=== PATIENT | male | born 1935 | race Caucasian/White ===

== ENCOUNTER 2017-10-19 02:05 | Observation (INO) | payer MEDICARE, BC, OTHER ==
[2017-10-19] MEDS ORDERED: Sodium Chloride 0.9% 1,000 ML IV ONE ×2 (02:11→05:01)
[2017-10-19] MEDS ORDERED: Sodium Chloride 0.9% 2.5 ML Syringe FLUSH PRN ×2 (02:11)
[2017-10-19] MEDS ORDERED: Sodium Chloride 0.9% 10 ML Syringe FLUSH PRN (02:11)
[2017-10-19] MEDS ORDERED: cefTRIAXone 1 GM in Premix Bag 1 BAG IV ONE (03:03)
[2017-10-19 03:06] LABS: CHLORIDE,CL 100 mmol/L (98-107); SODIUM,NA 136 mmol/L (136-148)
--- NOTE | 2017-10-19 05:35 | EDM.PDOC ---
ED HPI GENERAL MEDICAL PROBLEM - General Chief Complaint: Fever Stated Complaint: AMBULANCE Time Seen by Provider: 10/19/17 05:29 Source of Information: Reports: Patient, Family History Limitations: Reports: No Limitations - History of Present Illness INITIAL COMMENTS - FREE TEXT/NARRATIVE: HISTORY AND PHYSICAL: History of present illness: 81-year-old male presented to emergency department by EMS with chief complaint of generalized weak 1 day. Patient states that he was unable to get up and has been feeling generally weak 1 day. Denies any associated fever, nausea, vomiting, abdominal pain, leg pain , or dysuria. Senior Buyer states that she has noticed increased urinary frequency. Senior Buyer states that he was doing fine until this evening coming back from dinner he became extremely weak and tired and was unable to get up after sitting down and that is why she called EMS. He currently denies any chest pain, palpitations, shortness breath, syncopal episodes or focal neurologic deficits. Patient does have baseline mild confusion/dementia. Review of systems: As per history of present illness and below otherwise all systems reviewed and negative. Past medical history: As per history of present illness and as reviewed below otherwise noncontributory. Surgical history: As per history of present illness and as reviewed below otherwise noncontributory. Social history: No reported history of drug or alcohol abuse. Family history: As per history of present illness and as reviewed below otherwise noncontributory. Physical exam: HEENT: Atraumatic, normocephalic, pupils reactive, negative for conjunctival pallor or scleral icterus, mucous membranes moist, throat clear, neck supple, nontender, trachea midline. Lungs: Clear to auscultation, breath sounds equal bilaterally, chest nontender. Heart: S1S2, regular, negative for clicks, rubs, or JVD. Abdomen: Soft, nondistended, nontender. Negative for masses or hepatosplenomegaly. Negative for costovertebral tenderness. Pelvis: Stable nontender. Genitourinary: Deferred. Rectal: Deferred. Extremities: Atraumatic, negative for cords or calf pain. Neurovascular unremarkable. Neuro: Awake, alert, oriented. Cranial nerves II through XII unremarkable. Cerebellum unremarkable. Motor and sensory unremarkable throughout. Exam nonfocal. Diagnostics: CBC, CMP, troponin, d-dimer, INR, chest x-ray, EKG, UA/UC, blood cultures x 2 Therapeutics: 1 L normal saline 2, 1 g Rocephin Impression: Generalized weakness Leukocytosis Plan: CBC did show leukocytosis of 18,000, lactate was normal. I did give the patient 2 L normal saline and 1 g of Rocephin IV. CMP, troponin, d-dimer, INR, chest x- ray, EKG were all unremarkable. Secondary to patient's generalized weakness, age , as well as mental status I did call Dr. Ku, hospitalist, who accepted patient for admission observation acute cystitis. Definitive disposition and diagnosis as appropriate pending reevaluation and review of above. - Related Data Allergies Allergy/AdvReac Type Severity Reaction Status Date / Time No Known Allergies Allergy Verified 10/19/17 02:13 Home Meds: Home Meds Aspirin [Ecotrin] 325 mg PO DAILY 08/09/15 [History] Metoprolol Tartrate [Lopressor] 25 mg PO BID 08/09/15 [History] metFORMIN HCl [Glucophage] 1,000 mg PO BIDMEALS 01/18/16 [History] Insulin Glargine,Hum.Rec.Anlog [Lantus Solostar] 7 unit SQ BEDTIME #1 pen [Rx] Furosemide [Lasix] 40 mg PO BID 10/19/17 [History] Gabapentin [Neurontin] 100 mg PO ASDIRECTED 10/19/17 [History] Lisinopril [Prinivil] 20 mg PO QAM 10/19/17 [History] Past Medical History HEENT History: Reports: Hard of Hearing, Impaired Vision Cardiovascular History: Reports: Hypertension Respiratory History: Reports: SOB Genitourinary History: Reports: None Musculoskeletal History: Reports: Other (See Below) Other Musculoskeletal History: using cane to ambulate Psychiatric History: Reports: None Endocrine/Metabolic History: Reports: Diabetes, Type II Dermatologic History: Reports: None - Infectious Disease History Infectious Disease History: Reports: Chicken Pox, Influenza, Measles, Mumps - Past Surgical History HEENT Surgical History: Reports: None Cardiovascular Surgical History: Reports: Coronary Artery Stent Male Surgical History: Reports: Prostatectomy Endocrine Surgical History: Reports: None Musculoskeletal Surgical History: Reports: Hip Replacement Social & Family History - Family History Family Medical History: Noncontributory Oncologic: Reports: Other (See Below) Other Oncologic Family History: cancer (feminine) - Tobacco Use Smoking Status *Q: Former Smoker Used Tobacco, but Quit: Yes Month/Year Tobacco Last Used: "many years ago" Second Hand Smoke Exposure: No - Caffeine Use Caffeine Use: Reports: Coffee - Recreational Drug Use Recreational Drug Use: No ED ROS GENERAL - Review of Systems Review Of Systems: ROS reveals no pertinent complaints other than HPI. ED EXAM, GENERAL - Physical Exam Exam: See Below Course - Vital Signs Last Recorded V/S: Last Vital Signs Temp 98.5 F 10/19/17 04:40 Pulse 93 10/19/17 04:40 Resp 18 10/19/17 04:40 BP 114/50 L 10/19/17 05:00 Pulse Ox 93 L 10/19/17 04:40 - Orders/Labs/Meds Orders: Active Orders 24 hr Category Date Time Status Admission Status [Patient Status] [ADT] Stat ADT 10/19/17 06:29 Active Cardiac Monitoring [RC] . DIRECTED Care 10/19/17 02:11 Active EKG Documentation Completion [RC] STAT Care 10/19/17 02:11 Active Oxygen Therapy [RC] ASDIRECTED Care 10/19/17 02:11 Active Pulse Oximetry [RC] ASDIRECTED Care 10/19/17 02:11 Active Chest 1V Frontal [CR] Stat Exams 10/19/17 02:11 Taken CULTURE BLOOD [BC] Stat Lab 10/19/17 02:33 Results CULTURE BLOOD [BC] Stat Lab 10/19/17 03:03 Received CULTURE URINE [RM] Stat Lab 10/19/17 05:29 Ordered UA W/MICROSCOPIC [URIN] Stat Lab 10/19/17 05:29 Ordered Sodium Chloride 0.9% [Saline Flush] Med 10/19/17 02:11 Active 10 ml FLUSH ASDIRECTED PRN Sodium Chloride 0.9% [Saline Flush] Med 10/19/17 02:11 Active 2.5 ml FLUSH ASDIRECTED PRN Sodium Chloride 0.9% [Saline Flush] Med 10/19/17 02:11 Active 2.5 ml FLUSH ASDIRECTED PRN Blood Culture x2 Reflex Set [OM.PC] Stat Oth 10/19/17 03:03 Ordered Saline Lock Insert [OM.PC] Stat Oth 10/19/17 02:11 Ordered Medication Orders Sodium Chloride (Saline Flush) 2.5 ml FLUSH ASDIRECTED PRN PRN Reason: Keep Vein Open Sodium Chloride (Saline Flush) 10 ml FLUSH ASDIRECTED PRN PRN Reason: Keep Vein Open Sodium Chloride (Saline Flush) 2.5 ml FLUSH ASDIRECTED PRN PRN Reason: Keep Vein Open Labs: Laboratory Tests 10/19/17 10/19/17 10/19/17 Range/Units 02:33 02:33 02:33 WBC 18.55 H (4.0-11.0) K/uL RBC 5.02 (4.50-5.90) M/uL Hgb 15.0 (13.0-17.0) g/dL Hct 44.6 (38.0-50.0) % MCV 88.8 (80.0-98.0) fL MCH 29.9 (27.0-32.0) pg MCHC 33.6 (31.0-37.0) g/dL RDW Std Deviation 45.1 (28.0-62.0) fl RDW Coeff of Manisha 14 (11.0-15.0) % Plt Count 196 (150-400) K/uL MPV 10.40 (7.40-12.00) fL Neut % (Auto) 86.8 H (48.0-80.0) % Lymph % (Auto) 5.8 L (16.0-40.0) % [place] % (Auto) 7.0 (0.0-15.0) % Eos % (Auto) 0.3 (0.0-7.0) % Baso % (Auto) 0.1 (0.0-1.5) % Neut # (Auto) 16.1 H (1.4-5.7) K/uL Lymph # (Auto) 1.1 (0.6-2.4) K/uL [place] # (Auto) 1.3 H (0.0-0.8) K/uL Eos # (Auto) 0.1 (0.0-0.7) K/uL Baso # (Auto) 0.0 (0.0-0.1) K/uL INR 1.11 D-Dimer, Quantitative 0.40 (0.0-0.52) mg/LFEU Lactate (0.20-2.00) mmol/L Sodium 136 (136-148) mmol/L Potassium 3.7 (3.5-5.1) mmol/L Chloride 100 (98-107) mmol/L Carbon Dioxide 25.7 (21.0-32.0) mmol/L BUN 20 H (7.0-18.0) mg/dL Creatinine 1.1 (0.8-1.3) mg/dL Est Cr Clr Drug Dosing 59.16 mL/min Estimated GFR (MDRD) > 60.0 ml/min Glucose 172 H (74-106) mg/dL Calcium 8.9 (8.5-10.1) mg/dL Total Bilirubin 1.5 H (0.2-1.0) mg/dL AST 15 (15-37) IU/L ALT 18 (14-63) IU/L Alkaline Phosphatase 105 (46-116) U/L Troponin I < 0.050 (0.000-0.056) ng/mL Total Protein 7.1 (6.4-8.2) g/dL Albumin 3.6 (3.4-5.0) g/dL Globulin 3.5 (2.0-3.5) g/dL Albumin/Globulin Ratio 1.0 L (1.3-2.8) Lipase 162 (73-393) U/L Urine Color Urine Appearance Urine pH (5.0-8.0) Ur Specific [place] (1.001-1.035) Urine Protein (NEGATIVE) mg/dL Urine Glucose (UA) (NEGATIVE) mg/dL Urine Ketones (NEGATIVE) mg/dL Urine Occult Blood (NEGATIVE) Urine Nitrite (NEGATIVE) Urine Bilirubin (NEGATIVE) Urine Urobilinogen (<2.0) EU/dL Ur Leukocyte Esterase (NEGATIVE) Urine RBC (0-2/HPF) Urine WBC (0-5/HPF) Ur Epithelial Cells (NONE-FEW) Urine Bacteria (NEGATIVE) 10/19/17 10/19/17 Range/Units 02:33 05:29 WBC (4.0-11.0) K/uL RBC (4.50-5.90) M/uL Hgb (13.0-17.0) g/dL Hct (38.0-50.0) % MCV (80.0-98.0) fL MCH (27.0-32.0) pg MCHC (31.0-37.0) g/dL RDW Std Deviation (28.0-62.0) fl RDW Coeff of Manisha (11.0-15.0) % Plt Count (150-400) K/uL MPV (7.40-12.00) fL Neut % (Auto) (48.0-80.0) % Lymph % (Auto) (16.0-40.0) % [place] % (Auto) (0.0-15.0) % Eos % (Auto) (0.0-7.0) % Baso % (Auto) (0.0-1.5) % Neut # (Auto) (1.4-5.7) K/uL Lymph # (Auto) (0.6-2.4) K/uL [place] # (Auto) (0.0-0.8) K/uL Eos # (Auto) (0.0-0.7) K/uL Baso # (Auto) (0.0-0.1) K/uL INR D-Dimer, Quantitative (0.0-0.52) mg/LFEU Lactate 1.4 (0.20-2.00) mmol/L Sodium (136-148) mmol/L Potassium (3.5-5.1) mmol/L Chloride (98-107) mmol/L Carbon Dioxide (21.0-32.0) mmol/L BUN (7.0-18.0) mg/dL Creatinine (0.8-1.3) mg/dL Est Cr Clr Drug Dosing mL/min Estimated GFR (MDRD) ml/min Glucose (74-106) mg/dL Calcium (8.5-10.1) mg/dL Total Bilirubin (0.2-1.0) mg/dL AST (15-37) IU/L ALT (14-63) IU/L Alkaline Phosphatase (46-116) U/L Troponin I (0.000-0.056) ng/mL Total Protein (6.4-8.2) g/dL Albumin (3.4-5.0) g/dL Globulin (2.0-3.5) g/dL Albumin/Globulin Ratio (1.3-2.8) Lipase (73-393) U/L Urine Color YELLOW Urine Appearance HAZY Urine pH 5.5 (5.0-8.0) Ur Specific [place] 1.020 (1.001-1.035) Urine Protein NEGATIVE (NEGATIVE) mg/dL Urine Glucose (UA) NEGATIVE (NEGATIVE) mg/dL Urine Ketones NEGATIVE (NEGATIVE) mg/dL Urine Occult Blood LARGE H (NEGATIVE) Urine Nitrite NEGATIVE (NEGATIVE) Urine Bilirubin NEGATIVE (NEGATIVE) Urine Urobilinogen 1.0 (<2.0) EU/dL Ur Leukocyte Esterase TRACE (NEGATIVE) Urine RBC 10-15 (0-2/HPF) Urine WBC 1-3 (0-5/HPF) Ur Epithelial Cells RARE (NONE-FEW) Urine Bacteria FEW (NEGATIVE) Meds: Medications Generic Name Dose Route Start Last Admin Trade Name Freq PRN Reason Stop Dose Admin Sodium Chloride 2.5 ml 10/19/17 02:11 Saline Flush FLUSH ASDIRECTED PRN Keep Vein Open Sodium Chloride 10 ml 10/19/17 02:11 Saline Flush FLUSH ASDIRECTED PRN Keep Vein Open Sodium Chloride 2.5 ml 10/19/17 02:11 Saline Flush FLUSH ASDIRECTED PRN Keep Vein Open Discontinued Medications Generic Name Dose Route Start Last Admin Trade Name Freq PRN Reason Stop Dose Admin Sodium Chloride 1,000 mls @ 999 mls/hr 10/19/17 02:11 10/19/17 02:45 Normal Saline IV 10/19/17 03:11 999 mls/hr .Bolus ONE Administration Ceftriaxone Sodium/Dextrose 1 50 mls @ 100 mls/hr 10/19/17 03:03 10/19/17 03: 19 gm/ Premix IV 10/19/17 03:32 100 mls/hr ONETIME ONE Administration Sodium Chloride 1,000 mls @ 999 mls/hr 10/19/17 05:01 10/19/17 05:16 Normal Saline IV 10/19/17 06:01 999 mls/hr STAT ONE Administration Departure - Departure Time of Disposition: 06:32 Disposition: Home, Self-Care 01 Condition: Good Clinical Impression: Acute cystitis Qualifiers: Hematuria presence: without hematuria Qualified Code(s): N30.00 - Acute cystitis without hematuria - Discharge Information Referrals: PCP,None [Primary Care Provider] - Forms: ED Department Discharge - My Orders Last 24 Hours: My Active Orders 10/19/17 02:11 Cardiac Monitoring [RC] . DIRECTED EKG Documentation Completion [RC] STAT Oxygen Therapy [RC] ASDIRECTED Pulse Oximetry [RC] ASDIRECTED Chest 1V Frontal [CR] Stat Sodium Chloride 0.9% [Saline Flush] 10 ml FLUSH ASDIRECTED PRN Sodium Chloride 0.9% [Saline Flush] 2.5 ml FLUSH ASDIRECTED PRN Sodium Chloride 0.9% [Saline Flush] 2.5 ml FLUSH ASDIRECTED PRN Saline Lock Insert [OM.PC] Stat 10/19/17 02:33 CULTURE BLOOD [BC] Stat 10/19/17 03:03 CULTURE BLOOD [BC] Stat Blood Culture x2 Reflex Set [OM.PC] Stat 10/19/17 05:29 CULTURE URINE [RM] Stat UA W/MICROSCOPIC [URIN] Stat 10/19/17 06:29 Admission Status [Patient Status] [ADT] Stat - Assessment/Plan Last 24 Hours: My Active Orders 10/19/17 02:11 Cardiac Monitoring [RC] . DIRECTED EKG Documentation Completion [RC] STAT Oxygen Therapy [RC] ASDIRECTED Pulse Oximetry [RC] ASDIRECTED Chest 1V Frontal [CR] Stat Sodium Chloride 0.9% [Saline Flush] 10 ml FLUSH ASDIRECTED PRN Sodium Chloride 0.9% [Saline Flush] 2.5 ml FLUSH ASDIRECTED PRN Sodium Chloride 0.9% [Saline Flush] 2.5 ml FLUSH ASDIRECTED PRN Saline Lock Insert [OM.PC] Stat 10/19/17 02:33 CULTURE BLOOD [BC] Stat 10/19/17 03:03 CULTURE BLOOD [BC] Stat Blood Culture x2 Reflex Set [OM.PC] Stat 10/19/17 05:29 CULTURE URINE [RM] Stat UA W/MICROSCOPIC [URIN] Stat 10/19/17 06:29 Admission Status [Patient Status] [ADT] Stat
--- NOTE | 2017-10-19 17:00 | PCM.HP ---
H&P History of Present Illness - General Admit Problem/Dx: Admission Diagnosis/Problem Admission Diagnosis/Problem Acute cystitis denies pain Pain Score (Numeric/FACES): 0 - Related Data Allergies/Adverse Reactions: Allergies Allergy/AdvReac Type Severity Reaction Status Date / Time No Known Allergies Allergy Verified 10/19/17 02:13 Home Medications: Home Meds Aspirin [Ecotrin] 325 mg PO DAILY 08/09/15 [History] Metoprolol Tartrate [Lopressor] 25 mg PO BID 08/09/15 [History] metFORMIN HCl [Glucophage] 1,000 mg PO BIDMEALS 01/18/16 [History] Insulin Glargine,Hum.Rec.Anlog [Lantus Solostar] 7 unit SQ BEDTIME #1 pen [Rx] Furosemide [Lasix] 40 mg PO BID 10/19/17 [History] Gabapentin [Neurontin] 100 mg PO ASDIRECTED 10/19/17 [History] Lisinopril [Prinivil] 20 mg PO QAM 10/19/17 [History] Past Medical History HEENT History: Reports: Hard of Hearing, Impaired Vision Cardiovascular History: Reports: Hypertension Respiratory History: Reports: SOB Genitourinary History: Reports: None Musculoskeletal History: Reports: Other (See Below) Other Musculoskeletal History: using cane to ambulate Psychiatric History: Reports: None Endocrine/Metabolic History: Reports: Diabetes, Type II Dermatologic History: Reports: None - Infectious Disease History Infectious Disease History: Reports: Chicken Pox, Influenza, Measles, Mumps - Past Surgical History HEENT Surgical History: Reports: None Cardiovascular Surgical History: Reports: Coronary Artery Stent Male Surgical History: Reports: Prostatectomy Endocrine Surgical History: Reports: None Musculoskeletal Surgical History: Reports: Hip Replacement Social & Family History - Family History Family Medical History: Noncontributory Oncologic: Reports: Other (See Below) Other Oncologic Family History: cancer (feminine) - Tobacco Use Smoking Status *Q: Former Smoker Used Tobacco, but Quit: Yes Month/Year Tobacco Last Used: 1977 Second Hand Smoke Exposure: No - Caffeine Use Caffeine Use: Reports: Coffee - Recreational Drug Use Recreational Drug Use: No Exam - Vital Signs Vital Signs: Last Vital Signs Temp 98.3 F 10/19/17 15:56 Pulse 72 10/19/17 15:56 Resp 18 10/19/17 15:56 BP 113/62 07/21/18 15:56 Pulse Ox 97 10/19/17 15:56 Weight: 232 lb 8 oz - Patient Data Lab Results Last 24 hrs: Laboratory Results - last 24 hr 10/19/17 10/19/17 10/19/17 Range/Units 02:33 02:33 02:33 WBC 18.55 H (4.0-11.0) K/uL RBC 5.02 (4.50-5.90) M/uL Hgb 15.0 (13.0-17.0) g/dL Hct 44.6 (38.0-50.0) % MCV 88.8 (80.0-98.0) fL MCH 29.9 (27.0-32.0) pg MCHC 33.6 (31.0-37.0) g/dL RDW Std Deviation 45.1 (28.0-62.0) fl RDW Coeff of Manisha 14 (11.0-15.0) % Plt Count 196 (150-400) K/uL MPV 10.40 (7.40-12.00) fL Neut % (Auto) 86.8 H (48.0-80.0) % Lymph % (Auto) 5.8 L (16.0-40.0) % [place] % (Auto) 7.0 (0.0-15.0) % Eos % (Auto) 0.3 (0.0-7.0) % Baso % (Auto) 0.1 (0.0-1.5) % Neut # (Auto) 16.1 H (1.4-5.7) K/uL Lymph # (Auto) 1.1 (0.6-2.4) K/uL [place] # (Auto) 1.3 H (0.0-0.8) K/uL Eos # (Auto) 0.1 (0.0-0.7) K/uL Baso # (Auto) 0.0 (0.0-0.1) K/uL INR 1.11 D-Dimer, Quantitative 0.40 (0.0-0.52) mg/LFEU Lactate (0.20-2.00) mmol/L Sodium 136 (136-148) mmol/L Potassium 3.7 (3.5-5.1) mmol/L Chloride 100 (98-107) mmol/L Carbon Dioxide 25.7 (21.0-32.0) mmol/L BUN 20 H (7.0-18.0) mg/dL Creatinine 1.1 (0.8-1.3) mg/dL Est Cr Clr Drug Dosing 59.16 mL/min Estimated GFR (MDRD) > 60.0 ml/min Glucose 172 H (74-106) mg/dL POC Glucose (60-110) mg/dL Calcium 8.9 (8.5-10.1) mg/dL Total Bilirubin 1.5 H (0.2-1.0) mg/dL AST 15 (15-37) IU/L ALT 18 (14-63) IU/L Alkaline Phosphatase 105 (46-116) U/L Troponin I < 0.050 (0.000-0.056) ng/mL Total Protein 7.1 (6.4-8.2) g/dL Albumin 3.6 (3.4-5.0) g/dL Globulin 3.5 (2.0-3.5) g/dL Albumin/Globulin Ratio 1.0 L (1.3-2.8) Lipase 162 (73-393) U/L Urine Color Urine Appearance Urine pH (5.0-8.0) Ur Specific [place] (1.001-1.035) Urine Protein (NEGATIVE) mg/dL Urine Glucose (UA) (NEGATIVE) mg/dL Urine Ketones (NEGATIVE) mg/dL Urine Occult Blood (NEGATIVE) Urine Nitrite (NEGATIVE) Urine Bilirubin (NEGATIVE) Urine Urobilinogen (<2.0) EU/dL Ur Leukocyte Esterase (NEGATIVE) Urine RBC (0-2/HPF) Urine WBC (0-5/HPF) Ur Epithelial Cells (NONE-FEW) Urine Bacteria (NEGATIVE) 10/19/17 10/19/17 10/19/17 Range/Units 02:33 05:29 08:45 WBC (4.0-11.0) K/uL RBC (4.50-5.90) M/uL Hgb (13.0-17.0) g/dL Hct (38.0-50.0) % MCV (80.0-98.0) fL MCH (27.0-32.0) pg MCHC (31.0-37.0) g/dL RDW Std Deviation (28.0-62.0) fl RDW Coeff of Manisha (11.0-15.0) % Plt Count (150-400) K/uL MPV (7.40-12.00) fL Neut % (Auto) (48.0-80.0) % Lymph % (Auto) (16.0-40.0) % [place] % (Auto) (0.0-15.0) % Eos % (Auto) (0.0-7.0) % Baso % (Auto) (0.0-1.5) % Neut # (Auto) (1.4-5.7) K/uL Lymph # (Auto) (0.6-2.4) K/uL [place] # (Auto) (0.0-0.8) K/uL Eos # (Auto) (0.0-0.7) K/uL Baso # (Auto) (0.0-0.1) K/uL INR D-Dimer, Quantitative (0.0-0.52) mg/LFEU Lactate 1.4 (0.20-2.00) mmol/L Sodium (136-148) mmol/L Potassium (3.5-5.1) mmol/L Chloride (98-107) mmol/L Carbon Dioxide (21.0-32.0) mmol/L BUN (7.0-18.0) mg/dL Creatinine (0.8-1.3) mg/dL Est Cr Clr Drug Dosing mL/min Estimated GFR (MDRD) ml/min Glucose (74-106) mg/dL POC Glucose 132 H (60-110) mg/dL Calcium (8.5-10.1) mg/dL Total Bilirubin (0.2-1.0) mg/dL AST (15-37) IU/L ALT (14-63) IU/L Alkaline Phosphatase (46-116) U/L Troponin I (0.000-0.056) ng/mL Total Protein (6.4-8.2) g/dL Albumin (3.4-5.0) g/dL Globulin (2.0-3.5) g/dL Albumin/Globulin Ratio (1.3-2.8) Lipase (73-393) U/L Urine Color YELLOW Urine Appearance HAZY Urine pH 5.5 (5.0-8.0) Ur Specific [place] 1.020 (1.001-1.035) Urine Protein NEGATIVE (NEGATIVE) mg/dL Urine Glucose (UA) NEGATIVE (NEGATIVE) mg/dL Urine Ketones NEGATIVE (NEGATIVE) mg/dL Urine Occult Blood LARGE H (NEGATIVE) Urine Nitrite NEGATIVE (NEGATIVE) Urine Bilirubin NEGATIVE (NEGATIVE) Urine Urobilinogen 1.0 (<2.0) EU/dL Ur Leukocyte Esterase TRACE (NEGATIVE) Urine RBC 10-15 (0-2/HPF) Urine WBC 1-3 (0-5/HPF) Ur Epithelial Cells RARE (NONE-FEW) Urine Bacteria FEW (NEGATIVE) 10/19/17 10/19/17 Range/Units 11:54 16:26 WBC (4.0-11.0) K/uL RBC (4.50-5.90) M/uL Hgb (13.0-17.0) g/dL Hct (38.0-50.0) % MCV (80.0-98.0) fL MCH (27.0-32.0) pg MCHC (31.0-37.0) g/dL RDW Std Deviation (28.0-62.0) fl RDW Coeff of Manisha (11.0-15.0) % Plt Count (150-400) K/uL MPV (7.40-12.00) fL Neut % (Auto) (48.0-80.0) % Lymph % (Auto) (16.0-40.0) % [place] % (Auto) (0.0-15.0) % Eos % (Auto) (0.0-7.0) % Baso % (Auto) (0.0-1.5) % Neut # (Auto) (1.4-5.7) K/uL Lymph # (Auto) (0.6-2.4) K/uL [place] # (Auto) (0.0-0.8) K/uL Eos # (Auto) (0.0-0.7) K/uL Baso # (Auto) (0.0-0.1) K/uL INR D-Dimer, Quantitative (0.0-0.52) mg/LFEU Lactate (0.20-2.00) mmol/L Sodium (136-148) mmol/L Potassium (3.5-5.1) mmol/L Chloride (98-107) mmol/L Carbon Dioxide (21.0-32.0) mmol/L BUN (7.0-18.0) mg/dL Creatinine (0.8-1.3) mg/dL Est Cr Clr Drug Dosing mL/min Estimated GFR (MDRD) ml/min Glucose (74-106) mg/dL POC Glucose 186 H 143 H (60-110) mg/dL Calcium (8.5-10.1) mg/dL Total Bilirubin (0.2-1.0) mg/dL AST (15-37) IU/L ALT (14-63) IU/L Alkaline Phosphatase (46-116) U/L Troponin I (0.000-0.056) ng/mL Total Protein (6.4-8.2) g/dL Albumin (3.4-5.0) g/dL Globulin (2.0-3.5) g/dL Albumin/Globulin Ratio (1.3-2.8) Lipase (73-393) U/L Urine Color Urine Appearance Urine pH (5.0-8.0) Ur Specific [place] (1.001-1.035) Urine Protein (NEGATIVE) mg/dL Urine Glucose (UA) (NEGATIVE) mg/dL Urine Ketones (NEGATIVE) mg/dL Urine Occult Blood (NEGATIVE) Urine Nitrite (NEGATIVE) Urine Bilirubin (NEGATIVE) Urine Urobilinogen (<2.0) EU/dL Ur Leukocyte Esterase (NEGATIVE) Urine RBC (0-2/HPF) Urine WBC (0-5/HPF) Ur Epithelial Cells (NONE-FEW) Urine Bacteria (NEGATIVE) Result Diagrams: 10/19/17 02:33 10/19/17 02:33 Greg Results Last 24 hrs: Microbiology 10/19/17 02:33 Anaerobic Blood Culture - Final Blood - Venous Orders Last 24hrs: Active Orders 24 hr Category Date Time Status Admission Status [Patient Status] [ADT] Stat ADT 10/19/17 06:29 Active Blood Glucose Check, Bedside [RC] QIDACANDBED Care 10/19/17 17:30 Active Cardiac Monitoring [RC] . DIRECTED Care 10/19/17 02:11 Active EKG Documentation Completion [RC] STAT Care 10/19/17 02:11 Active Oxygen Therapy [RC] ASDIRECTED Care 10/19/17 02:11 Active Pulse Oximetry [RC] ASDIRECTED Care 10/19/17 02:11 Active Consult to Physical Therapy [PT Evaluation and Cons 10/19/17 10:03 Active Treatment] [CONS] Routine [employer] Diet [DIET] Diet 10/19/17 Breakfast Active Chest 1V Frontal [CR] Stat Exams 10/19/17 02:11 Taken CULTURE BLOOD [BC] Stat Lab 10/19/17 02:33 Results CULTURE BLOOD [BC] Stat Lab 10/19/17 03:03 Received CULTURE URINE [RM] Stat Lab 10/19/17 05:29 Ordered UA W/MICROSCOPIC [URIN] Stat Lab 10/19/17 05:29 Ordered Insulin Aspart [NovoLOG] Med 10/19/17 17:00 Active See Protocol SUBCUT TIDAC Sodium Chloride 0.9% [Saline Flush] Med 10/19/17 02:11 Active 10 ml FLUSH ASDIRECTED PRN Sodium Chloride 0.9% [Saline Flush] Med 10/19/17 02:11 Active 2.5 ml FLUSH ASDIRECTED PRN Sodium Chloride 0.9% [Saline Flush] Med 10/19/17 02:11 Active 2.5 ml FLUSH ASDIRECTED PRN Blood Culture x2 Reflex Set [OM.PC] Stat Oth 10/19/17 03:03 Ordered Saline Lock Insert [OM.PC] Stat Oth 10/19/17 02:11 Ordered Medication Orders Insulin Aspart (Novolog) 0 unit SUBCUT TIDAC HIREN; Protocol Sodium Chloride (Saline Flush) 2.5 ml FLUSH ASDIRECTED PRN PRN Reason: Keep Vein Open Sodium Chloride (Saline Flush) 10 ml FLUSH ASDIRECTED PRN PRN Reason: Keep Vein Open Sodium Chloride (Saline Flush) 2.5 ml FLUSH ASDIRECTED PRN PRN Reason: Keep Vein Open
[2017-10-19] MEDS: Insulin Aspart 100 Units/ML 3 ML Pen SUBCUT SCH (17:14)
[2017-10-19] MEDS ORDERED: Gabapentin 100 MG Cap PO SCH ×2 (19:15→21:00)
--- NOTE | 2017-10-19 19:27 | PCM.SN ---
- Free Text/Narrative Note: [id number]
[2017-10-19] MEDS: Aspirin 325 MG Tab.EC PO SCH (20:13)
[2017-10-19] MEDS: metFORMIN 500 MG Tab PO SCH (20:13)
[2017-10-19] MEDS: Furosemide 40 MG Tab PO SCH (20:14)
[2017-10-19] MEDS: Metoprolol Tartrate 25 MG Tab PO SCH (20:14)
[2017-10-19] MEDS ORDERED: Insulin Glargine,Human Rec. Analog 100 Units/ML 3 ML Pen SUBCUT SCH (21:00)
[2017-10-20] MEDS ORDERED: Vancomycin 1.5 GM in Sodium Chloride 0.9% 500 ML IV SCH ×2
[2017-10-20 06:17] LABS: CHLORIDE,CL 101 mmol/L (98-107); SODIUM,NA 135 mmol/L (136-148)
[2017-10-20] MEDS: Insulin Aspart 100 Units/ML 3 ML Pen SUBCUT SCH ×2 (06:30→12:57)
[2017-10-20] MEDS: Furosemide 40 MG Tab PO SCH (07:46)
[2017-10-20] MEDS: metFORMIN 500 MG Tab PO SCH (07:46)
[2017-10-20] MEDS: Metoprolol Tartrate 25 MG Tab PO SCH (08:43)
[2017-10-20] MEDS: Aspirin 325 MG Tab.EC PO SCH (08:43)
[2017-10-20] MEDS ORDERED: Gabapentin 100 MG Cap PO SCH (09:00)
[2017-10-20] MEDS ORDERED: Lisinopril 10 MG Tab PO SCH (09:00)
[2017-10-20] MEDS ORDERED: Potassium Chloride 20 MEQ Tab.ER PO ONE (09:17)
[2017-10-20 12:22] VITALS: BP 130/65
--- NOTE | 2017-10-20 14:09 | PCM.DCSUM1 ---
Discharge Summary - Hospital Course HPI Initial Comments: HISTORY OF PRESENT ILLNESS: The patient is an 81-year-old man, presented to Emergency Department due to generalized weakness for 1 day. The patient states that he was not able to work, and he was feeling very weak. 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 The patient is hard of hearing, and he has marked confusion and dementia. History from the patient is very hard to obtain. Diagnosis: Stroke: No - Discharge Data Discharge Disposition: Home, Self-Care 01 Condition: Stable - Patient Summary/Data Consults: Consultations 10/19/17 10:03 Consult to Physical Therapy [PT Evaluation and Treatment] [CONS] Routine - Patient Instructions Diet: Usual Diet as Tolerated Activity: As Tolerated Driving: May Drive Today Showering/Bathing: May Shower - Discharge Plan Prescriptions/Med Rec: Amoxicillin/Clavulanate K [Augmentin 875-125 MG] 1 tab PO BID #14 tablet Home Medications: Home Meds Aspirin [Ecotrin] 325 mg PO DAILY 08/09/15 [History] Metoprolol Tartrate [Lopressor] 25 mg PO BID 08/09/15 [History] metFORMIN HCl [Glucophage] 1,000 mg PO BIDMEALS 01/18/16 [History] Insulin Glargine,Hum.Rec.Anlog [Lantus Solostar] 7 unit SQ BEDTIME #1 pen [Rx] Furosemide [Lasix] 40 mg PO BID 10/19/17 [History] Gabapentin [Neurontin] 100 mg PO ASDIRECTED 10/19/17 [History] Lisinopril [Prinivil] 20 mg PO QAM 10/19/17 [History] Amoxicillin/Clavulanate K [Augmentin 875-125 MG] 1 tab PO BID #14 tablet [Rx] Patient Handouts: Urinary Tract Infection, Adult, [id number], Amoxicillin; Clavulanic Acid extended-release tablets - Patient Data Vitals - Most Recent: Last Vital Signs Temp 97.2 F 10/20/17 12:00 Pulse 78 10/20/17 12:00 Resp 18 10/20/17 12:00 BP 130/65 10/20/17 12:00 Pulse Ox 99 10/20/17 12:00 Weight - Most Recent: 232 lb 8 oz I&O - Last 24 hours: Intake & Output 10/19/17 10/20/17 10/20/17 22:59 06:59 14:59 Intake Total 850 1140 Output Total 500 650 Balance 350 490 Lab Results - Last 24 hrs: Laboratory Results - last 24 hr 10/19/17 10/19/17 10/20/17 Range/Units 16:26 21:14 05:46 WBC (4.0-11.0) K/uL RBC (4.50-5.90) M/uL Hgb (13.0-17.0) g/dL Hct (38.0-50.0) % MCV (80.0-98.0) fL MCH (27.0-32.0) pg MCHC (31.0-37.0) g/dL RDW Std Deviation (28.0-62.0) fl RDW Coeff of Manisha (11.0-15.0) % Plt Count (150-400) K/uL MPV (7.40-12.00) fL Nucleated RBC % /100WBC Nucleated RBCs # K/uL Sodium (136-148) mmol/L Potassium (3.5-5.1) mmol/L Chloride (98-107) mmol/L Carbon Dioxide (21.0-32.0) mmol/L BUN (7.0-18.0) mg/dL Creatinine (0.8-1.3) mg/dL Est Cr Clr Drug Dosing mL/min Estimated GFR (MDRD) ml/min Glucose (74-106) mg/dL POC Glucose 143 H 161 H 118 H (60-110) mg/dL Calcium (8.5-10.1) mg/dL 10/20/17 10/20/17 Range/Units 05:50 05:50 WBC 10.12 (4.0-11.0) K/uL RBC 4.85 (4.50-5.90) M/uL Hgb 14.3 (13.0-17.0) g/dL Hct 42.9 (38.0-50.0) % MCV 88.5 (80.0-98.0) fL MCH 29.5 (27.0-32.0) pg MCHC 33.3 (31.0-37.0) g/dL RDW Std Deviation 47.4 (28.0-62.0) fl RDW Coeff of Manisha 15 (11.0-15.0) % Plt Count 144 L (150-400) K/uL MPV 10.30 (7.40-12.00) fL Nucleated RBC % 0.0 /100WBC Nucleated RBCs # 0 K/uL Sodium 135 L (136-148) mmol/L Potassium 3.5 (3.5-5.1) mmol/L Chloride 101 (98-107) mmol/L Carbon Dioxide 26.3 (21.0-32.0) mmol/L BUN 19 H (7.0-18.0) mg/dL Creatinine 1.0 (0.8-1.3) mg/dL Est Cr Clr Drug Dosing 65.08 mL/min Estimated GFR (MDRD) > 60.0 ml/min Glucose 115 H (74-106) mg/dL POC Glucose (60-110) mg/dL Calcium 8.4 L (8.5-10.1) mg/dL GONZALES Results - Last 24 hrs: Microbiology 10/19/17 03:24 Aerobic Blood Culture - Preliminary Blood - Venous - Lab Draw NO GROWTH AFTER 1 DAY Anaerobic Blood Culture - Preliminary NO GROWTH AFTER 1 DAY 10/19/17 02:33 Aerobic Blood Culture - Preliminary Blood - Venous Anaerobic Blood Culture - Final 10/19/17 05:29 Urine Culture - Preliminary Urine, Clean Catch NO GROWTH AFTER 1 DAY Med Orders - Current: Current Medications Aspirin (Ecotrin) 325 mg PO DAILY [facility] Last Admin: 10/20/17 08:43 Dose: 325 mg Furosemide (Lasix) 40 mg PO BIDDIURETIC HIREN Last Admin: 10/20/17 07:46 Dose: 40 mg Gabapentin (Neurontin) 100 mg PO DAILY [facility] Last Admin: 10/20/17 08:44 Dose: 100 mg Gabapentin (Neurontin) 200 mg PO BEDTIME [facility] Last Admin: 10/19/17 20:13 Dose: 200 mg Vancomycin HCl 1.5 gm/ Sodium (Chloride) 500 mls @ 333.333 mls/hr IV Q24H [facility] Last Admin: 10/20/17 00:34 Dose: 333.333 mls/hr Insulin Aspart (Novolog) 0 unit SUBCUT TIDAC [facility]; Protocol Last Admin: 10/20/17 12:57 Dose: Not Given Insulin Glargine (Lantus Solostar) 7 units SUBCUT BEDTIME [facility] Last Admin: 10/19/17 21:17 Dose: 7 units Lisinopril (Prinivil) 20 mg PO DAILY [facility] Last Admin: 10/20/17 08:44 Dose: 20 mg Metformin HCl (Glucophage) 1,000 mg PO BIDMEALS [facility] Last Admin: 10/20/17 07:46 Dose: 1,000 mg Metoprolol Tartrate (Lopressor) 25 mg PO BID [facility] Last Admin: 10/20/17 08:43 Dose: 25 mg Sodium Chloride (Saline Flush) 2.5 ml FLUSH ASDIRECTED PRN PRN Reason: Keep Vein Open Sodium Chloride (Saline Flush) 10 ml FLUSH ASDIRECTED PRN PRN Reason: Keep Vein Open Sodium Chloride (Saline Flush) 2.5 ml FLUSH ASDIRECTED PRN PRN Reason: Keep Vein Open Vancomycin HCl (Pharmacy To Dose - Vancomycin) 1 dose .XX ASDIRECTED [facility] Discontinued Medications Gabapentin (Neurontin) 100 mg PO ASDIRECTED [facility] Sodium Chloride (Normal Saline) 1,000 mls @ 999 mls/hr IV .Bolus ONE Stop: 10/19/17 03:11 Last Admin: 10/19/17 02:45 Dose: 999 mls/hr Ceftriaxone Sodium/Dextrose 1 (gm/ Premix) 50 mls @ 100 mls/hr IV ONETIME ONE Stop: 10/19/17 03:32 Last Admin: 10/19/17 03:19 Dose: 100 mls/hr Sodium Chloride (Normal Saline) 1,000 mls @ 999 mls/hr IV STAT ONE Stop: 10/19/17 06:01 Last Admin: 10/19/17 05:16 Dose: 999 mls/hr Potassium Chloride (Klor-Con M20) 40 meq PO ONETIME ONE Stop: 10/20/17 09:18 Last Admin: 10/20/17 09:56 Dose: 40 meq
--- NOTE | 2017-10-21 06:51 | HP ---
DATE OF : 1935 PRIMARY CARE PHYSICIAN: None PCP HISTORY OF PRESENT ILLNESS: The patient is an 81-year-old man, presented to Emergency Department due to generalized weakness for 1 day. The patient states that he was not able to work, and he was feeling very weak. 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 The patient is hard of hearing, and he has marked confusion and dementia. History from the patient is very hard to obtain. REVIEW OF SYSTEMS: A 12-point review of systems is negative except as in history of present illness. PAST MEDICAL HISTORY: The patient has history of coronary artery disease, atrial fibrillation, history of bronchitis, congestive heart failure, history of hypertension, and diabetes mellitus, type 2. He is status post PCI with 5 stents about 8 years ago. PAST SURGICAL HISTORY: The patient had coronary artery stent, prostatectomy, and hip replacement. SOCIAL HISTORY: He used to smoke. No alcohol use. No drug use. FAMILY HISTORY: He has history of cancer in his family. ALLERGIES: The patient does not have any known drug allergies. VITAL SIGNS: At admission, the patient had temperature 98.3, pulse 72, respiratory rate 18, blood pressure 113/62, and pulse oximetry 97%. LABORATORY DATA: At admission, WBC 18.55, RBC 5.02, hemoglobin 15.0, hematocrit 44.6, and platelet count 196. INR 1.11. D-dimer 0.4. Sodium is 136, potassium 3.7, chloride 100, CO2 of 25.7, BUN 20, creatinine 1.1, and glucose 172. Calcium 8.9, total bilirubin 1.5, AST 15, ALT 18, and alkaline phosphatase 105. Troponin less than 0.05. Total protein 7.1, albumin 3.6, globulin 3.5. Lipase 162. Urine color is yellow, appearance is hazy, pH is 5.5, urine specific gravity 1.020, urine protein negative, urine glucose negative, urine ketones negative, urine occult blood large, urine nitrites negative, urine bilirubin negative, urine leukocyte esterase trace, rbc's 10 to 15, wbc's 1 to 3, urine epithelial cells rare, urine bacteria few. IMAGING: Chest x-ray was negative for acute disease. PHYSICAL EXAMINATION: GENERAL: The patient has generalized weakness. HEENT: His head is atraumatic, normocephalic. Pupils equally reactive to light. NECK: Supple. No thyromegaly. No lymphadenopathy. LUNGS: Clear to auscultation bilaterally. HEART: S1 and S2. Regular rhythm and rate. No murmurs. ABDOMEN: Soft and nontender. Positive bowel sounds. EXTREMITIES: No edema. NEUROLOGIC: The patient is alert and oriented x3. There are no gross focal neurological deficits. ASSESSMENT AND PLAN: 1. Generalized weakness due to urinary tract infection. We will start the patient on Rocephin 1 g IV q.24 hours, and we will follow up urine culture and blood culture. We will recommend physical therapy for the patient. 2. For his coronary artery disease, we will continue the patient with Ecotrin 325 mg p.o. daily. 3. For congestive heart failure, we will continue the patient with furosemide 40 mg p.o. b.i.d. 4. For neuropathy, the patient will be continued with gabapentin 100 mg p.o. 3 times a day. 5. For diabetes mellitus, we will continue the patient with insulin glargine 7 units subcutaneously at bedtime and insulin aspart on sliding scale, and we will follow blood sugars before meals and at bedtime. We will continue the patient with metformin 1000 mg p.o. b.i.d. 6. For coronary artery disease, the patient will be continued with metoprolol 25 mg p.o. b.i.d. 7. For hypertension, the patient will be continued with lisinopril 20 mg p.o. daily. 8. For deep vein thrombosis prophylaxis, we will put the patient on SCD. ANTOPET / MODL /[id number] ANUJ
--- NOTE | 2017-10-21 09:47 | CR ---
EXAM DATE: 10/19/17 PATIENT'S AGE: 81 Patient: PORSHA LEE Facility: [place], [place] Site . Site : 1935 Study: XRay Chest [id number]/21/2018 2:43:12 AM Ordering Physician: Doctor Reyes Final Report: HISTORY: Shortness of breath. Fever, weakness. TECHNIQUE: Portable frontal view of the chest. COMPARISON: Chest x-ray 11/28/2016. FINDINGS: Chronic prominence of the interstitium bilaterally, unchanged. No focal consolidation. No pleural effusion or pneumothorax. Cardiomediastinal silhouette is within normal limits for technique. Degenerative changes of the spine. 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 IMPRESSION: No acute findings. No significant change from 11/28/2016. Dictated by Israel Driver MD @ Oct 19 2017 3:29AM (Electronic Signature) Report Signed by Proxy. ANUJ
== END 2017-10-20 14:45 | disposition home or self-care (01) ==
LOC: MW.ED 02:05 → MW.MS 06:29
PROVIDERS: ADMIT Internal Medicine; ATTEND Internal Medicine
DX: R53.1 Weakness (principal); I25.10 Atherosclerotic heart disease of native coronary artery without angina pectoris; I48.91 Unspecified atrial fibrillation; I11.0 Hypertensive heart disease with heart failure; I50.9 Heart failure, unspecified; E11.9 Type 2 diabetes mellitus without complications; D72.829 Elevated white blood cell count, unspecified; Z79.82 Long term (current) use of aspirin; Z79.899 Other long term (current) drug therapy; Z87.891 Personal history of nicotine dependence
CPT/HCPCS: 36415; 71045; 80048; 80053; 81001; 82962; 83605; 83690; 84484; 85025; 85027; 85379; 85610; 87040; 87086; 93005; 96361; 96365; 96366; 96367; 97161; 99285; A9270; G0378; J0696; J1815; J3370; J7040; 99284

== ENCOUNTER 2018-07-10 21:11 | Observation (INO) | payer OTHER, MEDICARE, BC ==
[2018-07-10] MEDS ORDERED: Sodium Chloride 0.9% 2.5 ML Syringe FLUSH PRN ×2 (21:44→23:45)
[2018-07-10] MEDS ORDERED: Sodium Chloride 0.9% 10 ML Syringe FLUSH PRN ×2 (21:44→23:45)
[2018-07-10] MEDS ORDERED: Sodium Chloride 0.9% 250 ML IV SCH (21:45)
[2018-07-10] MEDS ORDERED: Ondansetron 4 MG/2 ML SDV IVPUSH ONE (21:45)
--- NOTE | 2018-07-10 21:49 | EDM.PDOC ---
ED HPI GENERAL MEDICAL PROBLEM - General Chief Complaint: General Stated Complaint: PT HAS BLADDER INFECTION Time Seen by Provider: 07/10/18 21:17 - History of Present Illness INITIAL COMMENTS - FREE TEXT/NARRATIVE: HISTORY AND PHYSICAL: History of present illness: The patient is 82-year-old male who follows at the [facility] and has a history of diabetes hypertension CHF coronary artery disease A. fib as well as prostate surgery for cancer for which he is in remission and presents with 2-1/2 days of having generalized weakness and needing more assistance with activities, decreased by mouth intake and discolored urine that is orange. The says that about a year ago he was here for similar symptoms and he had a UTI and she is concerned he has a UTI again. He has no flank pain or abdominal pain and no fevers or chills. He's had no chest pain or palpitations but he says he has been feeling more short of breath over the last 2 days. He has not had any falls nor has he passed out or blacked out. He says that there is no pain with urination or is there any blood in the urine. The is mostly concerned about his poor by mouth intake and his possible UTI. In the ED the patient is currently not complaining of anything but the says that he had nausea on the way here and when I directly asked him about that he does say that he is nauseated now. Normal bowel movements and no vomiting at home. Review of systems: As per history of present illness and below otherwise all systems reviewed and negative. Past medical history: As per history of present illness and as reviewed below otherwise noncontributory. Surgical history: As per history of present illness and as reviewed below otherwise noncontributory. Social history: No reported history of drug or alcohol abuse. Family history: As per history of present illness and as reviewed below otherwise noncontributory. Physical exam: General: Well-developed well-nourished overweight man who is nontoxic and speaking clearly in the ED. He moves with assistance and vital signs are noted by me HEENT: Atraumatic, normocephalic, pupils reactive, negative for conjunctival pallor or scleral icterus, mucous membranes tacky and pasty throat clear, neck supple, nontender, trachea midline. Lungs: Clear to auscultation with no work of breathing wheezing or stridor but diminished breath sounds in the bases, breath sounds equal bilaterally, chest nontender. Heart: S1S2, regular rate but irregular rhythm on my evaluation, negative for clicks, rubs, or overt murmur Abdomen: Soft, nondistended, nontender. Negative for masses or hepatosplenomegaly. Negative for costovertebral tenderness. The patient has a large midline incision and has suprapubic illness that I am unsure if there is a ventral wall hernia or there is just a fleshy illness to this area. There is no tenderness and bowel sounds are slightly hypoactive Pelvis: Stable nontender. Genitourinary: Deferred. Rectal: Deferred. Extremities: Atraumatic, negative for cords or calf pain. Neurovascular unremarkable. The patient has trace pedal edema bilaterally and there are chronic lower extremity skin changes appreciated. Neuro: Awake, alert, oriented. Cranial nerves II through XII unremarkable. Cerebellum unremarkable. Motor in bed is a 4/5 throughout and sensory unremarkable throughout. Exam nonfocal. Diagnostics: EKG UA urine culture CBC CMP BNP lipase troponin INR TSH chest x-ray lactate blood cultures Therapeutics: IV O2 monitor gentle IV fluids Zofran and Levaquin 2323: Case was discussed with Dr. Kay hospitalist and he agrees with observation admission for the UTI and the CHF. I will give him a dose of Levaquin but Dr. Kay would like me to refrain from Lasix dosing at this time as he is clinically intravascularly dehydrated and he would like to evaluate the patient prior to more dosing. I discussed all testing results with the patient and at bedside Impression: UTI, dyspnea with CHF Definitive disposition and diagnosis as appropriate pending reevaluation and review of above. - Related Data Allergies Allergy/AdvReac Type Severity Reaction Status Date / Time No Known Allergies Allergy Verified 07/10/18 21:21 Home Meds: Home Meds Aspirin [Ecotrin] 325 mg PO DAILY 08/09/15 [History] Metoprolol Tartrate [Lopressor] 25 mg PO BID 08/09/15 [History] metFORMIN HCl [Glucophage] 1,000 mg PO BIDMEALS 01/18/16 [History] Insulin Glargine,Hum.Rec.Anlog [Lantus Solostar] 7 unit SQ BEDTIME #1 pen [Rx] Furosemide [Lasix] 40 mg PO BID 10/19/17 [History] Gabapentin [Neurontin] 100 mg PO BID 10/19/17 [History] Lisinopril [Prinivil] 20 mg PO QAM 10/19/17 [History] Past Medical History HEENT History: Reports: Hard of Hearing, Impaired Vision Cardiovascular History: Reports: Hypertension Respiratory History: Reports: SOB Genitourinary History: Reports: None Musculoskeletal History: Reports: Other (See Below) Other Musculoskeletal History: using cane to ambulate Psychiatric History: Reports: None Endocrine/Metabolic History: Reports: Diabetes, Type II Dermatologic History: Reports: None - Infectious Disease History Infectious Disease History: Reports: Chicken Pox, Influenza, Measles, Mumps - Past Surgical History HEENT Surgical History: Reports: None Cardiovascular Surgical History: Reports: Coronary Artery Stent Male Surgical History: Reports: Prostatectomy Endocrine Surgical History: Reports: None Musculoskeletal Surgical History: Reports: Hip Replacement Social & Family History - Family History Family Medical History: Noncontributory Oncologic: Reports: Other (See Below) Other Oncologic Family History: cancer (feminine) - Caffeine Use Caffeine Use: Reports: Coffee ED ROS GENERAL - Review of Systems Review Of Systems: ROS reveals no pertinent complaints other than HPI. ED EXAM, GENERAL - Physical Exam Exam: See Below (See dictation) Course - Vital Signs Last Recorded V/S: Last Vital Signs Temp 36.4 C 07/10/18 21:25 Pulse 100 07/10/18 22:24 Resp 22 H 07/10/18 22:24 BP 140/73 07/10/18 22:24 Pulse Ox 96 07/10/18 22:24 - Orders/Labs/Meds Orders: Active Orders 24 hr Category Date Time Status Patient Status [ADT] Stat ADT 07/10/18 23:24 Ordered Blood Glucose Check, Bedside [RC] ONETIME Care 07/10/18 21:44 Active Cardiac Monitoring [RC] . DIRECTED Care 07/10/18 21:44 Active EKG Documentation Completion [RC] STAT Care 07/10/18 21:44 Active Oxygen Therapy, ED [RC] ASDIRECTED Care 07/10/18 21:44 Active Pulse Oximetry [RC] ASDIRECTED Care 07/10/18 21:44 Active CULTURE BLOOD [BC] Stat Lab 07/10/18 22:32 Ordered CULTURE BLOOD [BC] Stat Lab 07/10/18 22:55 Results CULTURE URINE [RM] Stat Lab 07/10/18 22:45 Received Levofloxacin/Dextrose 5%-Water [Levaquin in D5W 500 MG/ Med 07/10/18 23:21 Active 100 ML] 500 mg Premix Bag 1 bag IV ONETIME Sodium Chloride 0.9% [Normal Saline] 250 ml Med 07/10/18 21:45 Active IV STAT Sodium Chloride 0.9% [Saline Flush] Med 07/10/18 21:44 Active 10 ml FLUSH ASDIRECTED PRN Sodium Chloride 0.9% [Saline Flush] Med 07/10/18 21:44 Active 2.5 ml FLUSH ASDIRECTED PRN Blood Culture x2 Reflex Set [OM.PC] Stat Oth 07/10/18 22:32 Ordered Saline Lock Insert [OM.PC] Stat Ot 07/10/18 21:44 Ordered Medication Orders Sodium Chloride (Normal Saline) 250 mls @ 999 mls/hr IV STAT [facility] Last Admin: 07/10/18 22:14 Dose: 999 mls/hr Levofloxacin/Dextrose 500 mg/ (Premix) 100 mls @ 100 mls/hr IV ONETIME ONE Stop: 07/11/18 00:20 Sodium Chloride (Saline Flush) 10 ml FLUSH ASDIRECTED PRN PRN Reason: Keep Vein Open Sodium Chloride (Saline Flush) 2.5 ml FLUSH ASDIRECTED PRN PRN Reason: Keep Vein Open Labs: Laboratory Tests 07/10/18 07/10/18 07/10/18 Range/Units 22:13 22:13 22:13 WBC 17.11 H (4.0-11.0) K/uL RBC 4.64 (4.50-5.90) M/uL Hgb 13.8 (13.0-17.0) g/dL Hct 41.1 (38.0-50.0) % MCV 88.6 (80.0-98.0) fL MCH 29.7 (27.0-32.0) pg MCHC 33.6 (31.0-37.0) g/dL RDW Std Deviation 47.9 (28.0-62.0) fl RDW Coeff of Manisha 15 (11.0-15.0) % Plt Count 176 (150-400) K/uL MPV 10.80 (7.40-12.00) fL Neut % (Auto) 88.0 H (48.0-80.0) % Lymph % (Auto) 4.1 L (16.0-40.0) % [place] % (Auto) 7.4 (0.0-15.0) % Eos % (Auto) 0.4 (0.0-7.0) % Baso % (Auto) 0.1 (0.0-1.5) % Neut # (Auto) 15.1 H (1.4-5.7) K/uL Lymph # (Auto) 0.7 (0.6-2.4) K/uL [place] # (Auto) 1.3 H (0.0-0.8) K/uL Eos # (Auto) 0.1 (0.0-0.7) K/uL Baso # (Auto) 0.0 (0.0-0.1) K/uL Nucleated RBC % 0.0 /100WBC Nucleated RBCs # 0 K/uL INR Lactate (0.20-2.00) mmol/L Sodium 137 (136-148) mmol/L Potassium 4.1 (3.5-5.1) mmol/L Chloride 101 (98-107) mmol/L Carbon Dioxide 27.2 (21.0-32.0) mmol/L BUN 22 H (7.0-18.0) mg/dL Creatinine 1.2 (0.8-1.3) mg/dL Est Cr Clr Drug Dosing TNP Estimated GFR (MDRD) 57.7 ml/min Glucose 211 H (74-106) mg/dL Calcium 9.0 (8.5-10.1) mg/dL Total Bilirubin 3.1 H (0.2-1.0) mg/dL AST 14 L (15-37) IU/L ALT 19 (14-63) IU/L Alkaline Phosphatase 100 (46-116) U/L Troponin I < 0.050 (0.000-0.056) ng/mL B-Natriuretic Peptide 478 H (<100) PG/ML Total Protein 7.7 (6.4-8.2) g/dL Albumin 3.3 L (3.4-5.0) g/dL Globulin 4.4 H (2.6-4.0) g/dL Albumin/Globulin Ratio 0.8 L (0.9-1.6) Lipase 58 L (73-393) U/L TSH 3rd Generation 1.40 (0.36-3.74) uIU/mL Urine Color Urine Appearance Urine pH (5.0-8.0) Ur Specific Clark (1.001-1.035) Urine Protein (NEGATIVE) mg/dL Urine Glucose (UA) (NEGATIVE) mg/dL Urine Ketones (NEGATIVE) mg/dL Urine Occult Blood (NEGATIVE) Urine Nitrite (NEGATIVE) Urine Bilirubin (NEGATIVE) Urine Ictotest Urine Urobilinogen (<2.0) EU/dL Ur Leukocyte Esterase (NEGATIVE) Urine RBC (0-2/HPF) Urine WBC (0-5/HPF) Ur Epithelial Cells (NONE-FEW) Urine Bacteria (NEGATIVE) Urine Mucus (NONE-MOD) 07/10/18 07/10/18 07/10/18 Range/Units 22:13 22:45 22:55 WBC (4.0-11.0) K/uL RBC (4.50-5.90) M/uL Hgb (13.0-17.0) g/dL Hct (38.0-50.0) % MCV (80.0-98.0) fL MCH (27.0-32.0) pg MCHC (31.0-37.0) g/dL RDW Std Deviation (28.0-62.0) fl RDW Coeff of Manisha (11.0-15.0) % Plt Count (150-400) K/uL MPV (7.40-12.00) fL Neut % (Auto) (48.0-80.0) % Lymph % (Auto) (16.0-40.0) % [place] % (Auto) (0.0-15.0) % Eos % (Auto) (0.0-7.0) % Baso % (Auto) (0.0-1.5) % Neut # (Auto) (1.4-5.7) K/uL Lymph # (Auto) (0.6-2.4) K/uL [place] # (Auto) (0.0-0.8) K/uL Eos # (Auto) (0.0-0.7) K/uL Baso # (Auto) (0.0-0.1) K/uL Nucleated RBC % /100WBC Nucleated RBCs # K/uL INR 1.16 Lactate 1.8 (0.20-2.00) mmol/L Sodium (136-148) mmol/L Potassium (3.5-5.1) mmol/L Chloride (98-107) mmol/L Carbon Dioxide (21.0-32.0) mmol/L BUN (7.0-18.0) mg/dL Creatinine (0.8-1.3) mg/dL Est Cr Clr Drug Dosing Estimated GFR (MDRD) ml/min Glucose (74-106) mg/dL Calcium (8.5-10.1) mg/dL Total Bilirubin (0.2-1.0) mg/dL AST (15-37) IU/L ALT (14-63) IU/L Alkaline Phosphatase (46-116) U/L Troponin I (0.000-0.056) ng/mL B-Natriuretic Peptide (<100) PG/ML Total Protein (6.4-8.2) g/dL Albumin (3.4-5.0) g/dL Globulin (2.6-4.0) g/dL Albumin/Globulin Ratio (0.9-1.6) Lipase (73-393) U/L TSH 3rd Generation (0.36-3.74) uIU/mL Urine Color DARK YELLOW Urine Appearance CLEAR Urine pH 5.0 (5.0-8.0) Ur Specific [place] 1.025 (1.001-1.035) Urine Protein 100 H (NEGATIVE) mg/dL Urine Glucose (UA) NEGATIVE (NEGATIVE) mg/dL Urine Ketones NEGATIVE (NEGATIVE) mg/dL Urine Occult Blood SMALL H (NEGATIVE) Urine Nitrite NEGATIVE (NEGATIVE) Urine Bilirubin SMALL H (NEGATIVE) Urine Ictotest POSITIVE Urine Urobilinogen 1.0 (<2.0) EU/dL Ur Leukocyte Esterase TRACE H (NEGATIVE) Urine RBC 8-12 (0-2/HPF) Urine WBC 3-4 (0-5/HPF) Ur Epithelial Cells RARE (NONE-FEW) Urine Bacteria 1+ H (NEGATIVE) Urine Mucus LIGHT (NONE-MOD) Meds: Medications Generic Name Dose Route Start Last Admin Trade Name Freq PRN Reason Stop Dose Admin Sodium Chloride 250 mls @ 999 mls/hr 07/10/18 21:45 07/10/18 22:14 Normal Saline IV 999 mls/hr STAT HIREN Administration Levofloxacin/Dextrose 500 mg/ 100 mls @ 100 mls/hr 07/10/18 23:21 Premix IV 07/11/18 00:20 ONETIME ONE Sodium Chloride 10 ml 07/10/18 21:44 Saline Flush FLUSH ASDIRECTED PRN Keep Vein Open Sodium Chloride 2.5 ml 07/10/18 21:44 Saline Flush FLUSH ASDIRECTED PRN Keep Vein Open Discontinued Medications Generic Name Dose Route Start Last Admin Trade Name Freq PRN Reason Stop Dose Admin Ondansetron HCl 4 mg 07/10/18 21:45 07/10/18 22:14 Zofran IVPUSH 07/10/18 21:46 4 mg ONETIME ONE Administration Departure - Departure Time of Disposition: 23:26 Disposition: Refer to Observation Condition: Good Clinical Impression: UTI (urinary tract infection) Qualifiers: Urinary tract infection type: site unspecified Hematuria presence: without hematuria Qualified Code(s): N39.0 - Urinary tract infection, site not specified CHF exacerbation Qualifiers: Heart failure type: unspecified Qualified Code(s): I50.9 - Heart failure, unspecified - Discharge Information Referrals: PCP,None [Primary Care Provider] - Forms: ED Department Discharge - My Orders Last 24 Hours: My Active Orders 07/10/18 21:44 Blood Glucose Check, Bedside [RC] ONETIME Cardiac Monitoring [RC] . DIRECTED EKG Documentation Completion [RC] STAT Oxygen Therapy, ED [RC] ASDIRECTED Pulse Oximetry [RC] ASDIRECTED Sodium Chloride 0.9% [Saline Flush] 10 ml FLUSH ASDIRECTED PRN Sodium Chloride 0.9% [Saline Flush] 2.5 ml FLUSH ASDIRECTED PRN Saline Lock Insert [OM.PC] Stat 07/10/18 21:45 Sodium Chloride 0.9% [Normal Saline] 250 ml IV STAT 07/10/18 22:32 CULTURE BLOOD [BC] Stat Blood Culture x2 Reflex Set [OM.PC] Stat 07/10/18 22:45 CULTURE URINE [RM] Stat 07/10/18 22:55 CULTURE BLOOD [BC] Stat 07/10/18 23:21 Levofloxacin/Dextrose 5%-Water [Levaquin in D5W 500 MG/100 ML] 500 mg Premix Bag 1 bag IV ONETIME 07/10/18 23:24 Patient Status [ADT] Stat - Assessment/Plan Last 24 Hours: My Active Orders 07/10/18 21:44 Blood Glucose Check, Bedside [RC] ONETIME Cardiac Monitoring [RC] . DIRECTED EKG Documentation Completion [RC] STAT Oxygen Therapy, ED [RC] ASDIRECTED Pulse Oximetry [RC] ASDIRECTED Sodium Chloride 0.9% [Saline Flush] 10 ml FLUSH ASDIRECTED PRN Sodium Chloride 0.9% [Saline Flush] 2.5 ml FLUSH ASDIRECTED PRN Saline Lock Insert [OM.PC] Stat 07/10/18 21:45 Sodium Chloride 0.9% [Normal Saline] 250 ml IV STAT 07/10/18 22:32 CULTURE BLOOD [BC] Stat Blood Culture x2 Reflex Set [OM.PC] Stat 07/10/18 22:45 CULTURE URINE [RM] Stat 07/10/18 22:55 CULTURE BLOOD [BC] Stat 07/10/18 23:21 Levofloxacin/Dextrose 5%-Water [Levaquin in D5W 500 MG/100 ML] 500 mg Premix Bag 1 bag IV ONETIME 07/10/18 23:24 Patient Status [ADT] Stat
--- NOTE | 2018-07-10 22:29 | CR ---
INDICATION: Dyspnea, weakness, dehydration. COMPARISON: 10/19/2017 FINDINGS: An erect single view of the chest was obtained at 22 05 hours. There is increased prominence of interstitial markings, running mild. There is new mild vascular engorgement. The findings are that of new mild congestive failure. There is no sign of a pleural effusion on either side. The heart remains top-normal in size. The mediastinum is normal in appearance. 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 IMPRESSION: New mild congestive failure. Heart remains top-normal in size. Dictated by Maurizio Lozada MD @ Jul 10 2018 10:25PM Signed by Dr. Maurizio Lozada @ Jul 10 2018 10:28PM
[2018-07-10 22:59] LABS: CHLORIDE,CL 101 mmol/L (98-107); SODIUM,NA 137 mmol/L (136-148)
[2018-07-10] MEDS ORDERED: Levofloxacin/Dextrose 5%-Water 500 MG in Premix Bag 1 BAG IV ONE (23:21)
[2018-07-10] MEDS ORDERED: Furosemide 40 MG/4 ML VIAL IVPUSH ONE (23:43)
[2018-07-10] MEDS ORDERED: Acetaminophen 325 MG Tab PO PRN (23:44)
[2018-07-10] MEDS ORDERED: oxyCODONE 5 MG Tab PO PRN (23:44)
[2018-07-10] MEDS ORDERED: Ondansetron 4 MG/2 ML SDV IVPUSH PRN (23:46)
[2018-07-11] MEDS: Furosemide 20 MG/2 ML VIAL IVPUSH SCH ×2 (05:16→14:48)
[2018-07-11] MEDS: Piperacillin/Tazobactam 3.375 GM in Sodium Chloride 0.9% 50 ML IV SCH ×3 (05:16→21:30)
[2018-07-11 05:49] LABS: CHLORIDE,CL 103 mmol/L (98-107); SODIUM,NA 140 mmol/L (136-148)
[2018-07-11] MEDS: Insulin Aspart 100 Units/ML 3 ML Pen SUBCUT SCH ×4 (06:49→20:25)
--- NOTE | 2018-07-11 06:54 | PCM.HP ---
H&P History of Present Illness - General Date of Service: 07/11/18 Admit Problem/Dx: Admission Diagnosis/Problem Admission Diagnosis/Problem UTI (urinary tract infection), uncomplicated Source of Information: Patient, Family History Limitations: Reports: No Limitations - History of Present Illness Initial Comments - Free Text/Narative: The patient is an 82-year-old gentleman who had presented to the emergency department with concern for possible urinary tract infection. The patient's noted that he has frequent bouts of confusion as well as fatigue and weakness that had been previously associated with urinary tract infections. The patient does have a history of prostate surgery for cancer and coronary artery disease with atrial fibrillation. The patient otherwise says that he is feeling well. The patient has denied any pain. He did have some nausea and vomiting earlier. Has had no fever or chills. The patient also had testing in the emergency department which should includes urinalysis showing mild urinary tract infection and leukocytosis. Onset of Symptoms: Reports: Gradual Duration of Symptoms: Reports: Day(s):, Getting Worse Location: Reports: Generalized Improves with: Reports: None Worsens with: Reports: None Associated Symptoms: Reports: Confusion, Loss of Appetite - Related Data Allergies/Adverse Reactions: Allergies Allergy/AdvReac Type Severity Reaction Status Date / Time No Known Allergies Allergy Verified 07/10/18 21:21 Home Medications: Home Meds Aspirin [Ecotrin] 325 mg PO DAILY 08/09/15 [History] Metoprolol Tartrate [Lopressor] 25 mg PO BID 08/09/15 [History] metFORMIN HCl [Glucophage] 1,000 mg PO BIDMEALS 01/18/16 [History] Insulin Glargine,Hum.Rec.Anlog [Lantus Solostar] 7 unit SQ BEDTIME #1 pen [Rx] Furosemide [Lasix] 40 mg PO BID 10/19/17 [History] Gabapentin [Neurontin] 100 mg PO BID 10/19/17 [History] Lisinopril [Prinivil] 20 mg PO QAM 10/19/17 [History] Past Medical History HEENT History: Reports: Hard of Hearing, Impaired Vision Cardiovascular History: Reports: Afib, Hypertension Respiratory History: Reports: SOB Gastrointestinal History: Reports: None Genitourinary History: Reports: None Musculoskeletal History: Reports: Other (See Below) Other Musculoskeletal History: using cane to ambulate Psychiatric History: Reports: None Endocrine/Metabolic History: Reports: Diabetes, Type II Dermatologic History: Reports: None - Infectious Disease History Infectious Disease History: Reports: Chicken Pox, Influenza, Measles, Mumps - Past Surgical History HEENT Surgical History: Reports: None Cardiovascular Surgical History: Reports: Coronary Artery Stent Male Surgical History: Reports: Prostatectomy Endocrine Surgical History: Reports: None Musculoskeletal Surgical History: Reports: Hip Replacement Social & Family History - Family History Family Medical History: Noncontributory Oncologic: Reports: Other (See Below) Other Oncologic Family History: cancer (feminine) - Tobacco Use Smoking Status *Q: Never Smoker Second Hand Smoke Exposure: No - Caffeine Use Caffeine Use: Reports: Coffee - Recreational Drug Use Recreational Drug Use: No - Living Situation & Occupation Living situation: Reports: , with Spouse Occupation: Retired H&P Review of Systems - Review of Systems: Review Of Systems: See Below General: Reports: Malaise, Weakness HEENT: Reports: No Symptoms Pulmonary: Reports: No Symptoms Cardiovascular: Reports: Palpitations Gastrointestinal: Reports: No Symptoms Genitourinary: Reports: No Symptoms Musculoskeletal: Reports: No Symptoms Skin: Reports: No Symptoms Psychiatric: Reports: No Symptoms Neurological: Reports: No Symptoms Hematologic/Lymphatic: Reports: No Symptoms Immunologic: Reports: No Symptoms Exam - Exam Exam: See Below - Vital Signs Vital Signs: Last Vital Signs Temp 36.7 C 07/11/18 03:49 Pulse 85 07/11/18 03:49 Resp 20 07/11/18 03:49 BP 141/77 H 07/11/18 03:49 Pulse Ox 92 L 07/11/18 03:49 Weight: 107.275 kg - Exam Quality Assessment: No: Supplemental Oxygen General: Alert, Oriented, Cooperative, Mild Distress HEENT: Conjunctiva Clear, EACs Clear, EOMI, PERRLA. No: Mucosa Moist & [place] ( Dry) Neck: Supple, Trachea Midline Lungs: Clear to Auscultation, Normal Respiratory Effort Cardiovascular: Regular Rate, Irregular Rhythm, Systolic Murmur GI/Abdominal Exam: Normal Bowel Sounds, Soft, No Distention (Male) Exam: Deferred Rectal (Males) Exam: Deferred Back Exam: No: Normal Inspection Extremities: Normal Inspection, No Pedal Edema Skin: Warm, Dry, Intact Neurological: Cranial Nerves Intact Neuro Extensive - Mental Status: Alert, Oriented x3 Psychiatric: Alert, Normal Affect, Normal Mood - Patient Data Lab Results Last 24 hrs: Laboratory Results - last 24 hr 07/10/18 07/10/18 07/10/18 Range/Units 22:13 22:13 22:13 WBC 17.11 H (4.0-11.0) K/uL RBC 4.64 (4.50-5.90) M/uL Hgb 13.8 (13.0-17.0) g/dL Hct 41.1 (38.0-50.0) % MCV 88.6 (80.0-98.0) fL MCH 29.7 (27.0-32.0) pg MCHC 33.6 (31.0-37.0) g/dL RDW Std Deviation 47.9 (28.0-62.0) fl RDW Coeff of Manisha 15 (11.0-15.0) % Plt Count 176 (150-400) K/uL MPV 10.80 (7.40-12.00) fL Neut % (Auto) 88.0 H (48.0-80.0) % Lymph % (Auto) 4.1 L (16.0-40.0) % Burt % (Auto) 7.4 (0.0-15.0) % Eos % (Auto) 0.4 (0.0-7.0) % Baso % (Auto) 0.1 (0.0-1.5) % Neut # (Auto) 15.1 H (1.4-5.7) K/uL Lymph # (Auto) 0.7 (0.6-2.4) K/uL Burt # (Auto) 1.3 H (0.0-0.8) K/uL Eos # (Auto) 0.1 (0.0-0.7) K/uL Baso # (Auto) 0.0 (0.0-0.1) K/uL Nucleated RBC % 0.0 /100WBC Nucleated RBCs # 0 K/uL INR Lactate (0.20-2.00) mmol/L Sodium 137 (136-148) mmol/L Potassium 4.1 (3.5-5.1) mmol/L Chloride 101 (98-107) mmol/L Carbon Dioxide 27.2 (21.0-32.0) mmol/L BUN 22 H (7.0-18.0) mg/dL Creatinine 1.2 (0.8-1.3) mg/dL Est Cr Clr Drug Dosing TNP Estimated GFR (MDRD) 57.7 ml/min Glucose 211 H (74-106) mg/dL Calcium 9.0 (8.5-10.1) mg/dL Total Bilirubin 3.1 H (0.2-1.0) mg/dL AST 14 L (15-37) IU/L ALT 19 (14-63) IU/L Alkaline Phosphatase 100 (46-116) U/L Troponin I < 0.050 (0.000-0.056) ng/mL B-Natriuretic Peptide 478 H (<100) PG/ML Total Protein 7.7 (6.4-8.2) g/dL Albumin 3.3 L (3.4-5.0) g/dL Globulin 4.4 H (2.6-4.0) g/dL Albumin/Globulin Ratio 0.8 L (0.9-1.6) Lipase 58 L (73-393) U/L TSH 3rd Generation 1.40 (0.36-3.74) uIU/mL Urine Color Urine Appearance Urine pH (5.0-8.0) Ur Specific [place] (1.001-1.035) Urine Protein (NEGATIVE) mg/dL Urine Glucose (UA) (NEGATIVE) mg/dL Urine Ketones (NEGATIVE) mg/dL Urine Occult Blood (NEGATIVE) Urine Nitrite (NEGATIVE) Urine Bilirubin (NEGATIVE) Urine Ictotest Urine Urobilinogen (<2.0) EU/dL Ur Leukocyte Esterase (NEGATIVE) Urine RBC (0-2/HPF) Urine WBC (0-5/HPF) Ur Epithelial Cells (NONE-FEW) Urine Bacteria (NEGATIVE) Urine Mucus (NONE-MOD) 07/10/18 07/10/18 07/10/18 Range/Units 22:13 22:45 22:55 WBC (4.0-11.0) K/uL RBC (4.50-5.90) M/uL Hgb (13.0-17.0) g/dL Hct (38.0-50.0) % MCV (80.0-98.0) fL MCH (27.0-32.0) pg MCHC (31.0-37.0) g/dL RDW Std Deviation (28.0-62.0) fl RDW Coeff of [place]isha (11.0-15.0) % Plt Count (150-400) K/uL MPV (7.40-12.00) fL Neut % (Auto) (48.0-80.0) % Lymph % (Auto) (16.0-40.0) % Burt % (Auto) (0.0-15.0) % Eos % (Auto) (0.0-7.0) % Baso % (Auto) (0.0-1.5) % Neut # (Auto) (1.4-5.7) K/uL Lymph # (Auto) (0.6-2.4) K/uL Burt # (Auto) (0.0-0.8) K/uL Eos # (Auto) (0.0-0.7) K/uL Baso # (Auto) (0.0-0.1) K/uL Nucleated RBC % /100WBC Nucleated RBCs # K/uL INR 1.16 Lactate 1.8 (0.20-2.00) mmol/L Sodium (136-148) mmol/L Potassium (3.5-5.1) mmol/L Chloride (98-107) mmol/L Carbon Dioxide (21.0-32.0) mmol/L BUN (7.0-18.0) mg/dL Creatinine (0.8-1.3) mg/dL Est Cr Clr Drug Dosing Estimated GFR (MDRD) ml/min Glucose (74-106) mg/dL Calcium (8.5-10.1) mg/dL Total Bilirubin (0.2-1.0) mg/dL AST (15-37) IU/L ALT (14-63) IU/L Alkaline Phosphatase (46-116) U/L Troponin I (0.000-0.056) ng/mL B-Natriuretic Peptide (<100) PG/ML Total Protein (6.4-8.2) g/dL Albumin (3.4-5.0) g/dL Globulin (2.6-4.0) g/dL Albumin/Globulin Ratio (0.9-1.6) Lipase (73-393) U/L TSH 3rd Generation (0.36-3.74) uIU/mL Urine Color DARK YELLOW Urine Appearance CLEAR Urine pH 5.0 (5.0-8.0) Ur Specific [place] 1.025 (1.001-1.035) Urine Protein 100 H (NEGATIVE) mg/dL Urine Glucose (UA) NEGATIVE (NEGATIVE) mg/dL Urine Ketones NEGATIVE (NEGATIVE) mg/dL Urine Occult Blood SMALL H (NEGATIVE) Urine Nitrite NEGATIVE (NEGATIVE) Urine Bilirubin SMALL H (NEGATIVE) Urine Ictotest POSITIVE Urine Urobilinogen 1.0 (<2.0) EU/dL Ur Leukocyte Esterase TRACE H (NEGATIVE) Urine RBC 8-12 (0-2/HPF) Urine WBC 3-4 (0-5/HPF) Ur Epithelial Cells RARE (NONE-FEW) Urine Bacteria 1+ H (NEGATIVE) Urine Mucus LIGHT (NONE-MOD) 07/11/18 07/11/18 Range/Units 04:43 04:43 WBC 12.25 H (4.0-11.0) K/uL RBC 4.35 L (4.50-5.90) M/uL Hgb 12.5 L (13.0-17.0) g/dL Hct 38.9 (38.0-50.0) % MCV 89.4 (80.0-98.0) fL MCH 28.7 (27.0-32.0) pg MCHC 32.1 (31.0-37.0) g/dL RDW Std Deviation 48.8 (28.0-62.0) fl RDW Coeff of Manisha 15 (11.0-15.0) % Plt Count 174 (150-400) K/uL MPV 11.00 (7.40-12.00) fL Neut % (Auto) 79.8 (48.0-80.0) % Lymph % (Auto) 10.3 L (16.0-40.0) % Burt % (Auto) 8.6 (0.0-15.0) % Eos % (Auto) 1.1 (0.0-7.0) % Baso % (Auto) 0.2 (0.0-1.5) % Neut # (Auto) 9.8 H (1.4-5.7) K/uL Lymph # (Auto) 1.3 (0.6-2.4) K/uL Burt # (Auto) 1.1 H (0.0-0.8) K/uL Eos # (Auto) 0.1 (0.0-0.7) K/uL Baso # (Auto) 0.0 (0.0-0.1) K/uL Nucleated RBC % 0.0 /100WBC Nucleated RBCs # 0 K/uL INR Lactate (0.20-2.00) mmol/L Sodium 140 (136-148) mmol/L Potassium 4.3 (3.5-5.1) mmol/L Chloride 103 (98-107) mmol/L Carbon Dioxide 28.8 (21.0-32.0) mmol/L BUN 23 H (7.0-18.0) mg/dL Creatinine 1.1 (0.8-1.3) mg/dL Est Cr Clr Drug Dosing 56.49 Estimated GFR (MDRD) > 60.0 ml/min Glucose 148 H (74-106) mg/dL Calcium 8.7 (8.5-10.1) mg/dL Total Bilirubin (0.2-1.0) mg/dL AST (15-37) IU/L ALT (14-63) IU/L Alkaline Phosphatase (46-116) U/L Troponin I (0.000-0.056) ng/mL B-Natriuretic Peptide (<100) PG/ML Total Protein (6.4-8.2) g/dL Albumin (3.4-5.0) g/dL Globulin (2.6-4.0) g/dL Albumin/Globulin Ratio (0.9-1.6) Lipase (73-393) U/L TSH 3rd Generation (0.36-3.74) uIU/mL Urine Color Urine Appearance Urine pH (5.0-8.0) Ur Specific [place] (1.001-1.035) Urine Protein (NEGATIVE) mg/dL Urine Glucose (UA) (NEGATIVE) mg/dL Urine Ketones (NEGATIVE) mg/dL Urine Occult Blood (NEGATIVE) Urine Nitrite (NEGATIVE) Urine Bilirubin (NEGATIVE) Urine Ictotest Urine Urobilinogen (<2.0) EU/dL Ur Leukocyte Esterase (NEGATIVE) Urine RBC (0-2/HPF) Urine WBC (0-5/HPF) Ur Epithelial Cells (NONE-FEW) Urine Bacteria (NEGATIVE) Urine Mucus (NONE-MOD) Result Diagrams: 04/12/19 04:43 07/11/18 04:43 Greg Results Last 24 hrs: Microbiology 07/10/18 22:55 Anaerobic Blood Culture - Final Blood - Venous - Problem List (1) UTI (urinary tract infection) SNOMED Code(s): 10565095 ICD Code: N39.0 - URINARY TRACT INFECTION, SITE NOT SPECIFIED Status: Acute Priority: High Current Visit: Yes Qualifiers: Urinary tract infection type: site unspecified Hematuria presence: without hematuria Qualified Code(s): N39.0 - Urinary tract infection, site not specified (2) DM type 2 (diabetes mellitus, type 2) SNOMED Code(s): 89046357 ICD Code: E11.9 - TYPE 2 DIABETES MELLITUS WITHOUT COMPLICATIONS Status: Chronic Priority: High Current Visit: Yes Qualifiers: Diabetes mellitus rodent exterminator insulin use: without fpc use Diabetes mellitus complication status: with unspecified complications Qualified Code(s) : E11.8 - Type 2 diabetes mellitus with unspecified complications (3) Generalized weakness SNOMED Code(s): 40827241 ICD Code: R53.1 - WEAKNESS Status: Acute Priority: Medium Current Visit : Yes (4) CAD (coronary artery disease) SNOMED Code(s): 15233109 ICD Code: I25.10 - ATHSCL HEART DISEASE OF [place] CORONARY ARTERY W/O ANG PCTRS Status: Chronic Priority: Medium Current Visit: Yes Qualifiers: Coronary Disease-Associated Artery/Lesion type: unspecified vessel or lesion type [place] vs. transplanted heart: [place] heart Associated angina: without angina Qualified Code(s): I25.10 - Atherosclerotic heart disease of [place] coronary artery without angina pectoris (5) HTN (hypertension) SNOMED Code(s): 95269446 ICD Code: I10 - ESSENTIAL (PRIMARY) HYPERTENSION Status: Chronic Priority : Medium Current Visit: Yes Qualifiers: Hypertension type: essential hypertension Qualified Code(s): I10 - Essential (primary) hypertension (6) Systolic congestive heart failure with reduced left ventricular function, NYHA class 2 SNOMED Code(s): 981140061, 008088431, 033324538 ICD Code: I50.20 - UNSPECIFIED SYSTOLIC (CONGESTIVE) HEART FAILURE Status: Chronic Priority: High Current Visit: Yes (7) Moderate aortic stenosis SNOMED Code(s): 92717645 ICD Code: I35.0 - NONRHEUMATIC AORTIC (VALVE) STENOSIS Status: Chronic Priority: High Current Visit: Yes Problem List Initiated/Reviewed/Updated: Yes Orders Last 24hrs: Active Orders 24 hr Category Date Time Status Patient Status [ADT] Stat ADT 07/10/18 23:24 Active Blood Glucose Check, Bedside [RC] QIDACANDBED Care 07/12/18 07:00 Active Daily Weight [Height and Weight] [RC] DAILY Care 07/11/18 05:00 Active Telemetry Monitoring [Cardiac Monitoring] [RC] Q8H Care 07/10/18 23:46 Active Vital Signs [RC] Q4H Care 07/11/18 04:00 Active [place] [employer] Diet [DIET] Diet 07/11/18 Breakfast Active Fluid Restriction [DIET] Diet 07/11/18 Breakfast Active CULTURE BLOOD [BC] Stat Lab 07/10/18 22:55 Results CULTURE BLOOD [BC] Stat Lab 07/10/18 23:20 Received CULTURE URINE [RM] Stat Lab 07/10/18 22:45 Received Acetaminophen [Tylenol] Med 07/10/18 23:44 Active 650 mg PO Q6H PRN Furosemide [Lasix] Med 07/11/18 06:00 Active 20 mg IVPUSH BID@0600,1400 Insulin Aspart [NovoLOG] Med 07/11/18 07:30 Active See Protocol SUBCUT QIDACANDBED Ondansetron [Zofran] Med 07/10/18 23:46 Active 4 mg IVPUSH Q8H PRN Piperacillin/Tazobactam [Piperacil-Tazobact] 3.375 gm Med 07/11/18 06:00 Active Sodium Chloride 0.9% [Normal Saline] 50 ml IV Q8H Sodium Chloride 0.9% [Saline Flush] Med 07/10/18 21:44 Active 10 ml FLUSH ASDIRECTED PRN Sodium Chloride 0.9% [Saline Flush] Med 07/10/18 23:45 Active 10 ml FLUSH ASDIRECTED PRN Sodium Chloride 0.9% [Saline Flush] Med 07/10/18 21:44 Active 2.5 ml FLUSH ASDIRECTED PRN Sodium Chloride 0.9% [Saline Flush] Med 07/10/18 23:45 Active 2.5 ml FLUSH ASDIRECTED PRN oxyCODONE Med 07/10/18 23:44 Active 5 mg PO Q4H PRN Blood Culture x2 Reflex Set [OM.PC] Stat Ot 07/10/18 22:32 Ordered Convert IV to Saline Lock [OM.PC] Stat Ot 07/10/18 23:45 Ordered Saline Lock Insert [OM.PC] Stat Ot 07/10/18 21:44 Ordered Medication Orders Acetaminophen (Tylenol) 650 mg PO Q6H PRN PRN Reason: Pain (mild 1-3) Furosemide (Lasix) 20 mg IVPUSH BID@0600,1400 [facility] Last Admin: 07/11/18 05:16 Dose: 20 mg Piperacillin Sod/Tazobactam (Sod 3.375 gm/ Sodium Chloride) 50 mls @ 100 mls/ hr IV Q8H [facility] Last Admin: 07/11/18 05:16 Dose: 100 mls/hr Insulin Aspart (Novolog) 0 unit SUBCUT QIDACANDBED [facility]; Protocol Last Admin: 07/11/18 06:49 Dose: Not Given Ondansetron HCl (Zofran) 4 mg IVPUSH Q8H PRN PRN Reason: Nausea/Vomiting Oxycodone HCl (Oxycodone) 5 mg PO Q4H PRN PRN Reason: Pain (moderate 4-6) Sodium Chloride (Saline Flush) 10 ml FLUSH ASDIRECTED PRN PRN Reason: Keep Vein Open Sodium Chloride (Saline Flush) 2.5 ml FLUSH ASDIRECTED PRN PRN Reason: Keep Vein Open Sodium Chloride (Saline Flush) 10 ml FLUSH ASDIRECTED PRN PRN Reason: Keep Vein Open Sodium Chloride (Saline Flush) 2.5 ml FLUSH ASDIRECTED PRN PRN Reason: Keep Vein Open Assessment/Plan Comment:: The patient is an 82-year-old gentleman who had presented to the emergency department primarily out of concern for urinary tract infection. There is evidence of mild urinary tract infection and as a result of this patient will be kept on IV Rocephin. He'll also be gently fluid resuscitated secondary to the congestive heart failure that was previously noted in a 2-D echocardiogram from 2016. The echocardiogram at this time showed an ejection fraction of 35-40 % along with mild to moderate aortic stenosis. A repeat 2-D echocardiogram is been ordered although this can be done as an outpatient. The patient's congestive heart failure is otherwise well compensated as his BNP is at 478. He will be continued with his current medications. The patient also be kept on telemetry due to his heart disease. The patient as of today is doing better and he will be considered appropriate for discharge in 1-2 days. Repeat laboratory testing so been ordered. He has also been encouraged to ambulate.
[2018-07-11] MEDS: metFORMIN 500 MG Tab PO SCH (17:55)
[2018-07-11] MEDS: Furosemide 40 MG Tab PO SCH (20:18)
[2018-07-11] MEDS: Metoprolol Tartrate 25 MG Tab PO SCH (20:19)
[2018-07-11] MEDS: Gabapentin 100 MG Cap PO SCH (20:19)
[2018-07-12] MEDS: Furosemide 20 MG/2 ML VIAL IVPUSH SCH (05:22)
[2018-07-12] MEDS: Piperacillin/Tazobactam 3.375 GM in Sodium Chloride 0.9% 50 ML IV SCH (05:22)
--- NOTE | 2018-07-12 06:43 | PCM.PN ---
- Patient Data Vitals - Most Recent: Last Vital Signs Temp 36.6 C 07/12/18 03:51 Pulse 83 07/12/18 03:51 Resp 18 07/12/18 03:51 BP 124/67 07/12/18 03:51 Pulse Ox 90 L 07/12/18 03:51 Weight - Most Recent: 106.322 kg I&O - Last 24 Hours: Intake & Output 07/11/18 07/11/18 07/12/18 14:59 22:59 06:59 Intake Total 1150 600 Output Total 345 500 Balance 805 100 Lab Results Last 24 Hours: Laboratory Results - last 24 hr 07/11/18 07/11/18 07/11/18 Range/Units 06:48 12:04 16:08 POC Glucose 148 H 158 H 168 H (60-110) mg/dL 07/11/18 Range/Units 20:23 POC Glucose 167 H (60-110) mg/dL Greg Results Last 24 Hours: Microbiology 07/10/18 23:20 Aerobic Blood Culture - Preliminary Blood - Venous - Lab Draw NO GROWTH AFTER 1 DAY Anaerobic Blood Culture - Preliminary NO GROWTH AFTER 1 DAY 07/10/18 22:55 Aerobic Blood Culture - Preliminary Blood - Venous NO GROWTH AFTER 1 DAY Anaerobic Blood Culture - Final Med Orders - Current: Current Medications Acetaminophen (Tylenol) 650 mg PO Q6H PRN PRN Reason: Pain (mild 1-3) Aspirin (Ecotrin) 325 mg PO DAILY [facility] Furosemide (Lasix) 20 mg IVPUSH BID@0600,1400 [facility] Last Admin: 07/12/18 05:22 Dose: 20 mg Furosemide (Lasix) 40 mg PO BID [facility] Last Admin: 07/11/18 20:18 Dose: 40 mg Gabapentin (Neurontin) 100 mg PO BID [facility] Last Admin: 07/11/18 20:19 Dose: 100 mg Piperacillin Sod/Tazobactam (Sod 3.375 gm/ Sodium Chloride) 50 mls @ 100 mls/ hr IV Q8H [facility] Last Admin: 07/12/18 05:22 Dose: 100 mls/hr Insulin Aspart (Novolog) 0 unit SUBCUT QIDACANDBED [facility]; Protocol Last Admin: 07/11/18 20:25 Dose: 1 unit Lisinopril (Prinivil) 20 mg PO QAM [facility] Metformin HCl (Glucophage) 1,000 mg PO BIDMEALS [facility] Last Admin: 07/11/18 17:55 Dose: 1,000 mg Metoprolol Tartrate (Lopressor) 25 mg PO BID [facility] Last Admin: 07/11/18 20:19 Dose: 25 mg Ondansetron HCl (Zofran) 4 mg IVPUSH Q8H PRN PRN Reason: Nausea/Vomiting Oxycodone HCl (Oxycodone) 5 mg PO Q4H PRN PRN Reason: Pain (moderate 4-6) Sodium Chloride (Saline Flush) 10 ml FLUSH ASDIRECTED PRN PRN Reason: Keep Vein Open Sodium Chloride (Saline Flush) 2.5 ml FLUSH ASDIRECTED PRN PRN Reason: Keep Vein Open Sodium Chloride (Saline Flush) 10 ml FLUSH ASDIRECTED PRN PRN Reason: Keep Vein Open Sodium Chloride (Saline Flush) 2.5 ml FLUSH ASDIRECTED PRN PRN Reason: Keep Vein Open Discontinued Medications Furosemide (Lasix) 20 mg IVPUSH NOW ONE Stop: 07/10/18 23:44 Last Admin: 07/11/18 00:45 Dose: 20 mg Sodium Chloride (Normal Saline) 250 mls @ 999 mls/hr IV STAT [facility] Last Admin: 07/10/18 22:14 Dose: 999 mls/hr Levofloxacin/Dextrose 500 mg/ (Premix) 100 mls @ 100 mls/hr IV ONETIME ONE Stop: 07/11/18 00:20 Last Admin: 07/10/18 23:32 Dose: 100 mls/hr Ondansetron HCl (Zofran) 4 mg IVPUSH ONETIME ONE Stop: 07/10/18 21:46 Last Admin: 07/10/18 22:14 Dose: 4 mg - Problem List & Annotations (1) UTI (urinary tract infection) SNOMED Code(s): 24560945 Code(s): N39.0 - URINARY TRACT INFECTION, SITE NOT SPECIFIED Status: Acute Priority: High Current Visit: Yes Qualifiers: Urinary tract infection type: site unspecified Hematuria presence: without hematuria Qualified Code(s): N39.0 - Urinary tract infection, site not specified (2) DM type 2 (diabetes mellitus, type 2) SNOMED Code(s): 04189208 Code(s): E11.9 - TYPE 2 DIABETES MELLITUS WITHOUT COMPLICATIONS Status: Chronic Priority: High Current Visit: Yes Qualifiers: Diabetes mellitus correction insulin use: without correction use Diabetes mellitus complication status: with unspecified complications Qualified Code(s) : E11.8 - Type 2 diabetes mellitus with unspecified complications (3) Generalized weakness SNOMED Code(s): 78070688 Code(s): R53.1 - WEAKNESS Status: Acute Priority: Medium Current Visit : Yes (4) CAD (coronary artery disease) SNOMED Code(s): 90428467 Code(s): I25.10 - ATHSCL HEART DISEASE OF [place] CORONARY ARTERY W/O ANG PCTRS Status: Chronic Priority: Medium Current Visit: Yes Qualifiers: Coronary Disease-Associated Artery/Lesion type: unspecified vessel or lesion type [place] vs. transplanted heart: [place] heart Associated angina: without angina Qualified Code(s): I25.10 - Atherosclerotic heart disease of [place] coronary artery without angina pectoris (5) HTN (hypertension) SNOMED Code(s): 40690270 Code(s): I10 - ESSENTIAL (PRIMARY) HYPERTENSION Status: Chronic Priority : Medium Current Visit: Yes Qualifiers: Hypertension type: essential hypertension Qualified Code(s): I10 - Essential (primary) hypertension (6) Systolic congestive heart failure with reduced left ventricular function, NYHA class 2 SNOMED Code(s): 168276346, 469690897, 457542303 Code(s): I50.20 - UNSPECIFIED SYSTOLIC (CONGESTIVE) HEART FAILURE Status: Chronic Priority: High Current Visit: Yes (7) Moderate aortic stenosis SNOMED Code(s): 60840952 Code(s): I35.0 - NONRHEUMATIC AORTIC (VALVE) STENOSIS Status: Chronic Priority: High Current Visit: Yes - My Orders Last 24 Hours: My Active Orders 07/11/18 06:00 Furosemide [Lasix] 20 mg IVPUSH BID@0600,1400 Piperacillin/Tazobactam [Piperacil-Tazobact] 3.375 gm Sodium Chloride 0.9% [ Normal Saline] 50 ml IV Q8H 07/11/18 07:30 Insulin Aspart [NovoLOG] See Protocol SUBCUT QIDACANDBED 07/11/18 11:04 Resuscitation Status Routine 07/11/18 12:31 PT Evaluation and Treatment [CONS] Routine 07/11/18 13:58 EKG 12 Lead [EKG Documentation Completion] [RC] URGENT 07/11/18 17:00 metFORMIN [Glucophage] 1,000 mg PO BIDMEALS 07/11/18 17:46 OT Evaluation and Treatment [CONS] Routine 07/11/18 17:47 Consult to HH [Consult to Home Health] [CONS] Routine 07/11/18 21:00 Furosemide [Lasix] 40 mg PO BID Gabapentin [Neurontin] 100 mg PO BID Metoprolol Tartrate [Lopressor] 25 mg PO BID 07/11/18 Breakfast [employer] Diet [DIET] Fluid Restriction [DIET] 07/12/18 05:11 BASIC METABOLIC PANEL,BMP [CHEM] AM CBC WITH AUTO DIFF [HEME] AM 07/12/18 07:00 Blood Glucose Check, Bedside [RC] QIDACANDBED 07/12/18 09:00 Aspirin [Ecotrin] 325 mg PO DAILY Lisinopril [Prinivil] 20 mg PO QAM - Plan Plan:: The patient is an 82-year-old gentleman who had presented to the emergency department primarily out of concern for urinary tract infection. There is evidence of mild urinary tract infection and as a result of this patient will be kept on IV Rocephin. He'll also be gently fluid resuscitated secondary to the congestive heart failure that was previously noted in a 2-D echocardiogram from 2016. The echocardiogram at this time showed an ejection fraction of 35-40 % along with mild to moderate aortic stenosis. A repeat 2-D echocardiogram is been ordered although this can be done as an outpatient. The patient's congestive heart failure is otherwise well compensated as his BNP is at 478. He will be continued with his current medications. The patient also be kept on telemetry due to his heart disease. The patient as of today is doing better and he will be considered appropriate for discharge in 1-2 days. Repeat laboratory testing so been ordered. He has also been encouraged to ambulate.
[2018-07-12] MEDS: Insulin Aspart 100 Units/ML 3 ML Pen SUBCUT SCH ×2 (07:03→12:44)
[2018-07-12 07:52] VITALS: BP 126/62
[2018-07-12] MEDS: metFORMIN 500 MG Tab PO SCH (09:00)
[2018-07-12] MEDS ORDERED: Lisinopril 10 MG Tab PO SCH (09:00)
[2018-07-12] MEDS ORDERED: Aspirin 325 MG Tab.EC PO SCH (09:00)
[2018-07-12] MEDS: Furosemide 40 MG Tab PO SCH (09:01)
[2018-07-12] MEDS: Metoprolol Tartrate 25 MG Tab PO SCH (09:01)
[2018-07-12] MEDS: Gabapentin 100 MG Cap PO SCH (09:02)
--- NOTE | 2018-07-12 11:28 | PCM.DCSUM1 ---
Discharge Summary - Hospital Course HPI Initial Comments: Admitted secondary to weakness and urinary tract infection. Diagnosis: Stroke: No - Discharge Data Discharge Date: 07/12/18 Discharge Disposition: Home, Self-Care 01 Condition: Fair - Discharge Diagnosis/Problem(s) (1) UTI (urinary tract infection) SNOMED Code(s): 38268747 ICD Code: N39.0 - URINARY TRACT INFECTION, SITE NOT SPECIFIED Status: Acute Priority: High Qualifiers: Urinary tract infection type: site unspecified Hematuria presence: without hematuria Qualified Code(s): N39.0 - Urinary tract infection, site not specified (2) DM type 2 (diabetes mellitus, type 2) SNOMED Code(s): 45088377 ICD Code: E11.9 - TYPE 2 DIABETES MELLITUS WITHOUT COMPLICATIONS Status: Chronic Priority: High Qualifiers: Diabetes mellitus custodial insulin use: without ferry terminal agent use Diabetes mellitus complication status: with unspecified complications Qualified Code(s) : E11.8 - Type 2 diabetes mellitus with unspecified complications (3) Generalized weakness SNOMED Code(s): 25308648 ICD Code: R53.1 - WEAKNESS Status: Acute Priority: Medium (4) CAD (coronary artery disease) SNOMED Code(s): 03742301 ICD Code: I25.10 - ATHSCL HEART DISEASE OF [place] CORONARY ARTERY W/O ANG PCTRS Status: Chronic Priority: Medium Qualifiers: Coronary Disease-Associated Artery/Lesion type: unspecified vessel or lesion type [place] vs. transplanted heart: [place] heart Associated angina: without angina Qualified Code(s): I25.10 - Atherosclerotic heart disease of [place] coronary artery without angina pectoris (5) HTN (hypertension) SNOMED Code(s): 30890542 ICD Code: I10 - ESSENTIAL (PRIMARY) HYPERTENSION Status: Chronic Priority : Medium Qualifiers: Hypertension type: essential hypertension Qualified Code(s): I10 - Essential (primary) hypertension (6) Systolic congestive heart failure with reduced left ventricular function, NYHA class 2 SNOMED Code(s): 455068535, 931972530, 547414795 ICD Code: I50.20 - UNSPECIFIED SYSTOLIC (CONGESTIVE) HEART FAILURE Status: Chronic Priority: High (7) Moderate aortic stenosis SNOMED Code(s): 03694523 ICD Code: I35.0 - NONRHEUMATIC AORTIC (VALVE) STENOSIS Status: Chronic Priority: High - Patient Summary/Data Consults: Consultations 07/11/18 12:31 PT Evaluation and Treatment [CONS] Routine 07/11/18 17:46 OT Evaluation and Treatment [CONS] Routine 07/11/18 17:47 Consult to [Consult to Home Health] [CONS] Routine Hospital Course: The patient is an 82-year-old gentleman who had presented to the emergency department with concern for possible urinary tract infection. The patient's noted that he has frequent bouts of confusion as well as fatigue and weakness that had been previously associated with urinary tract infections. The patient does have a history of prostate surgery for cancer and coronary artery disease with atrial fibrillation. The patient otherwise says that he is feeling well.The patient had continued to improve through the short course of hospitalization. The patient currently has a live-in caregiver. He is interested in receiving in-home services upon discharge. The patient says that he feels well enough to go home. The patient was noted to have upon admission him elevated white blood cell count of 17,000. By day of discharge this had normalized. The patient had been started on Levaquin and he had tolerated this medication well. By day of discharge the patient had improved sufficiently is able to be discharged safely. The patient also had been tolerating diet. The patient has been recommended to continue with his current diet as tolerated. The patient also is to have activity as tolerated. Patient is to follow-up with his primary care physician. He has been hemodynamically stable and he is discharged with recommendations listed above. - Patient Instructions Diet: Heart Healthy Diet Activity: As Tolerated - Discharge Plan *PRESCRIPTION DRUG MONITORING PROGRAM REVIEWED*: No *COPY OF PRESCRIPTION DRUG MONITORING REPORT IN PATIENT CINDY: No Prescriptions/Med Rec: Ciprofloxacin HCl [Cipro] 500 mg PO 10 #10 tablet Home Medications: Home Meds Aspirin [Ecotrin] 325 mg PO DAILY 08/09/15 [History] Metoprolol Tartrate [Lopressor] 25 mg PO BID 08/09/15 [History] metFORMIN HCl [Glucophage] 1,000 mg PO BIDMEALS 01/18/16 [History] Insulin Glargine,Hum.Rec.Anlog [Lantus Solostar] 7 unit SQ BEDTIME #1 pen [Rx] Furosemide [Lasix] 40 mg PO BID 10/19/17 [History] Gabapentin [Neurontin] 100 mg PO BID 10/19/17 [History] Lisinopril [Prinivil] 20 mg PO QAM 10/19/17 [History] Ciprofloxacin HCl [Cipro] 500 mg PO 10 #10 tablet 07/12/18 [Rx] Oxygen Therapy Mode: Room Air Patient Handouts: Urinary Tract Infection, Adult, Heart Failure, [id number], Ciprofloxacin tablets Referrals: [facility] [Ordering Only Provider] - (Please call on Saturday, July 14 and schedule a follow up appointment with any of the residents in 5-7 days.) - Discharge Summary/Plan Comment DC Time >30 min.: Yes - General Info Date of Service: 07/12/18 Admission Dx/Problem (Free Text: Admission Diagnosis/Problem Admission Diagnosis/Problem UTI (urinary tract infection), uncomplicated Functional Status: Reports: Pain Controlled - Review of Systems General: Reports: No Symptoms HEENT: Reports: No Symptoms Pulmonary: Reports: No Symptoms Cardiovascular: Reports: No Symptoms Gastrointestinal: Reports: No Symptoms Genitourinary: Reports: No Symptoms Musculoskeletal: Reports: No Symptoms Skin: Reports: No Symptoms Neurological: Reports: No Symptoms Psychiatric: Reports: No Symptoms - Patient Data Vitals - Most Recent: Last Vital Signs Temp 36.7 C 07/12/18 07:52 Pulse 84 07/12/18 09:01 Resp 16 07/12/18 07:52 BP 126/62 07/12/18 09:02 Pulse Ox 92 L 07/12/18 07:52 Weight - Most Recent: 106.322 kg I&O - Last 24 hours: Intake & Output 07/11/18 07/12/18 07/12/18 22:59 06:59 14:59 Intake Total 1150 600 Output Total 345 500 Balance 805 100 Lab Results - Last 24 hrs: Laboratory Results - last 24 hr 07/11/18 07/11/18 07/11/18 Range/Units 12:04 16:08 20:23 WBC (4.0-11.0) K/uL RBC (4.50-5.90) M/uL Hgb (13.0-17.0) g/dL Hct (38.0-50.0) % MCV (80.0-98.0) fL MCH (27.0-32.0) pg MCHC (31.0-37.0) g/dL RDW Std Deviation (28.0-62.0) fl RDW Coeff of Manisha (11.0-15.0) % Plt Count (150-400) K/uL MPV (7.40-12.00) fL Neut % (Auto) (48.0-80.0) % Lymph % (Auto) (16.0-40.0) % [place] % (Auto) (0.0-15.0) % Eos % (Auto) (0.0-7.0) % Baso % (Auto) (0.0-1.5) % Neut # (Auto) (1.4-5.7) K/uL Lymph # (Auto) (0.6-2.4) K/uL [place] # (Auto) (0.0-0.8) K/uL Eos # (Auto) (0.0-0.7) K/uL Baso # (Auto) (0.0-0.1) K/uL Nucleated RBC % /100WBC Nucleated RBCs # K/uL Sodium (136-148) mmol/L Potassium (3.5-5.1) mmol/L Chloride (98-107) mmol/L Carbon Dioxide (21.0-32.0) mmol/L BUN (7.0-18.0) mg/dL Creatinine (0.8-1.3) mg/dL Est Cr Clr Drug Dosing mL/min Estimated GFR (MDRD) ml/min Glucose (74-106) mg/dL POC Glucose 158 H 168 H 167 H (60-110) mg/dL Calcium (8.5-10.1) mg/dL 07/12/18 07/12/18 07/12/18 Range/Units 07:01 07:20 07:20 WBC 8.84 (4.0-11.0) K/uL RBC 4.37 L (4.50-5.90) M/uL Hgb 12.9 L (13.0-17.0) g/dL Hct 39.4 (38.0-50.0) % MCV 90.2 (80.0-98.0) fL MCH 29.5 (27.0-32.0) pg MCHC 32.7 (31.0-37.0) g/dL RDW Std Deviation 49.8 (28.0-62.0) fl RDW Coeff of Manisha 15 (11.0-15.0) % Plt Count 193 (150-400) K/uL MPV 10.70 (7.40-12.00) fL Neut % (Auto) 71.5 (48.0-80.0) % Lymph % (Auto) 12.8 L (16.0-40.0) % [place] % (Auto) 9.3 (0.0-15.0) % Eos % (Auto) 6.2 (0.0-7.0) % Baso % (Auto) 0.2 (0.0-1.5) % Neut # (Auto) 6.3 H (1.4-5.7) K/uL Lymph # (Auto) 1.1 (0.6-2.4) K/uL [place] # (Auto) 0.8 (0.0-0.8) K/uL Eos # (Auto) 0.6 (0.0-0.7) K/uL Baso # (Auto) 0.0 (0.0-0.1) K/uL Nucleated RBC % 0.0 /100WBC Nucleated RBCs # 0 K/uL Sodium 141 (136-148) mmol/L Potassium 4.0 (3.5-5.1) mmol/L Chloride 99 (98-107) mmol/L Carbon Dioxide 31.1 (21.0-32.0) mmol/L BUN 26 H (7.0-18.0) mg/dL Creatinine 1.3 (0.8-1.3) mg/dL Est Cr Clr Drug Dosing 47.80 mL/min Estimated GFR (MDRD) 52.6 ml/min Glucose 133 H (74-106) mg/dL POC Glucose 126 H (60-110) mg/dL Calcium 8.8 (8.5-10.1) mg/dL GONZALES Results - Last 24 hrs: Microbiology 07/10/18 22:45 Urine Culture - Final Urine, Clean Catch MIXED STEFFANY 1,000-10,000 CFU/ML 07/10/18 23:20 Aerobic Blood Culture - Preliminary Blood - Venous - Lab Draw NO GROWTH AFTER 1 DAY Anaerobic Blood Culture - Preliminary NO GROWTH AFTER 1 DAY 07/10/18 22:55 Aerobic Blood Culture - Preliminary Blood - Venous NO GROWTH AFTER 1 DAY Anaerobic Blood Culture - Final Med Orders - Current: Current Medications Acetaminophen (Tylenol) 650 mg PO Q6H PRN PRN Reason: Pain (mild 1-3) Aspirin (Ecotrin) 325 mg PO DAILY [facility] Last Admin: 07/12/18 09:01 Dose: 325 mg Furosemide (Lasix) 20 mg IVPUSH BID@0600,1400 [facility] Last Admin: 07/12/18 05:22 Dose: 20 mg Furosemide (Lasix) 40 mg PO BID [facility] Last Admin: 07/12/18 09:01 Dose: 40 mg Gabapentin (Neurontin) 100 mg PO BID [facility] Last Admin: 07/12/18 09:02 Dose: 100 mg Piperacillin Sod/Tazobactam (Sod 3.375 gm/ Sodium Chloride) 50 mls @ 100 mls/ hr IV Q8H [facility] Last Admin: 07/12/18 05:22 Dose: 100 mls/hr Insulin Aspart (Novolog) 0 unit SUBCUT QIDACANDBED [facility]; Protocol Last Admin: 07/12/18 07:03 Dose: Not Given Lisinopril (Prinivil) 20 mg PO QAM [facility] Last Admin: 07/12/18 09:02 Dose: 20 mg Metformin HCl (Glucophage) 1,000 mg PO BIDMEALS [facility] Last Admin: 07/12/18 09:00 Dose: 1,000 mg Metoprolol Tartrate (Lopressor) 25 mg PO BID [facility] Last Admin: 07/12/18 09:01 Dose: 25 mg Ondansetron HCl (Zofran) 4 mg IVPUSH Q8H PRN PRN Reason: Nausea/Vomiting Oxycodone HCl (Oxycodone) 5 mg PO Q4H PRN PRN Reason: Pain (moderate 4-6) Sodium Chloride (Saline Flush) 10 ml FLUSH ASDIRECTED PRN PRN Reason: Keep Vein Open Sodium Chloride (Saline Flush) 2.5 ml FLUSH ASDIRECTED PRN PRN Reason: Keep Vein Open Sodium Chloride (Saline Flush) 10 ml FLUSH ASDIRECTED PRN PRN Reason: Keep Vein Open Sodium Chloride (Saline Flush) 2.5 ml FLUSH ASDIRECTED PRN PRN Reason: Keep Vein Open Discontinued Medications Furosemide (Lasix) 20 mg IVPUSH NOW ONE Stop: 07/10/18 23:44 Last Admin: 07/11/18 00:45 Dose: 20 mg Sodium Chloride (Normal Saline) 250 mls @ 999 mls/hr IV STAT [facility] Last Admin: 07/10/18 22:14 Dose: 999 mls/hr Levofloxacin/Dextrose 500 mg/ (Premix) 100 mls @ 100 mls/hr IV ONETIME ONE Stop: 07/11/18 00:20 Last Admin: 07/10/18 23:32 Dose: 100 mls/hr Ondansetron HCl (Zofran) 4 mg IVPUSH ONETIME ONE Stop: 07/10/18 21:46 Last Admin: 07/10/18 22:14 Dose: 4 mg - Exam General: Reports: Alert, Oriented, Cooperative, No Acute Distress HEENT: Reports: Pupils Equal, Pupils Reactive, EOMI, Mucous Membr. Moist/[place] Neck: Reports: Supple, Trachea Midline Lungs: Reports: Clear to Auscultation, Normal Respiratory Effort Cardiovascular: Reports: Regular Rate, Regular Rhythm, Murmurs (A 3/6 systolic murmur) GI/Abdominal Exam: Normal Bowel Sounds, Soft, Non-Tender, No Distention (Male) Exam: Deferred Rectal (Males) Exam: Deferred Back Exam: Reports: Normal Inspection, Full Range of Motion Extremities: Normal Inspection, Normal Range of Motion, No Pedal Edema Skin: Reports: Warm, Dry, Intact Neurological: Reports: No New Focal Deficit Psy/Mental Status: Reports: Alert, Normal Affect, Normal Mood
== END 2018-07-12 14:15 | disposition home or self-care (01) ==
LOC: MW.ED 21:11 → MW.MS 23:24
PROVIDERS: ADMIT Internal Medicine; ATTEND Internal Medicine
DX: N39.0 Urinary tract infection, site not specified (principal); I11.0 Hypertensive heart disease with heart failure; I50.23 Acute on chronic systolic (congestive) heart failure; I25.10 Atherosclerotic heart disease of native coronary artery without angina pectoris; I35.0 Nonrheumatic aortic (valve) stenosis; E11.9 Type 2 diabetes mellitus without complications; Z85.46 Personal history of malignant neoplasm of prostate; Z79.4 Long term (current) use of insulin; Z79.82 Long term (current) use of aspirin; Z79.899 Other long term (current) drug therapy
CPT/HCPCS: 36415; 71045; 80048; 80053; 81001; 82962; 83605; 83690; 83880; 84443; 84484; 85025; 85610; 87040; 87086; 93005; 96365; 96366; 96367; 96375; 96376; 97161; 97530; 99285; A9270; G0378; J1815; J1940; J1956; J2405; J2543; J7050; 99283